=== PATIENT | male | born 1940 | race Caucasian/White ===

== ENCOUNTER 2023-04-15 15:04 | Outpatient (RCR) | payer MEDICARE, SELFPAY | END 2023-04-15 23:59 | disposition home or self-care (01) | LOC: RPT 15:04 | PROVIDERS: ATTENDING PHYSICIAN Physical Medicine & Rehabilitation; PRIMARYCARE PHYSICIAN Family Medicine | DX: Z47.81 Encounter for orthopedic aftercare following surgical amputation (principal); M62.81 Muscle weakness (generalized); Z73.6 Limitation of activities due to disability; Z89.612 Acquired absence of left leg above knee; R26.2 Difficulty in walking, not elsewhere classified | CPT/HCPCS: 97110; 97763 ==

== ENCOUNTER 2023-05-27 14:06 | Outpatient (RCR) | payer MEDICARE, SELFPAY | END 2023-05-27 23:59 | disposition home or self-care (01) | LOC: RPT 14:06 | PROVIDERS: ATTENDING PHYSICIAN Physical Medicine & Rehabilitation; PRIMARYCARE PHYSICIAN Family Medicine | DX: Z47.81 Encounter for orthopedic aftercare following surgical amputation (principal); M62.81 Muscle weakness (generalized); Z73.6 Limitation of activities due to disability; Z89.612 Acquired absence of left leg above knee; R26.2 Difficulty in walking, not elsewhere classified | CPT/HCPCS: 97110; 97763 ==

== ENCOUNTER 2023-06-24 13:56 | Outpatient (RCR) | payer MEDICARE, SELFPAY | END 2023-06-24 23:59 | disposition home or self-care (01) | LOC: RPT 13:56 | PROVIDERS: ATTENDING PHYSICIAN Physical Medicine & Rehabilitation; PRIMARYCARE PHYSICIAN Family Medicine | DX: Z47.81 Encounter for orthopedic aftercare following surgical amputation (principal); M62.81 Muscle weakness (generalized); Z73.6 Limitation of activities due to disability; Z89.612 Acquired absence of left leg above knee; R26.2 Difficulty in walking, not elsewhere classified | CPT/HCPCS: 97763 ==

== ENCOUNTER 2023-07-22 14:22 | Outpatient (RCR) | payer MEDICARE, SELFPAY | END 2023-07-22 23:59 | disposition home or self-care (01) | LOC: RPT 14:22 | PROVIDERS: ATTENDING PHYSICIAN Physical Medicine & Rehabilitation; PRIMARYCARE PHYSICIAN Family Medicine | DX: Z47.81 Encounter for orthopedic aftercare following surgical amputation (principal); M62.81 Muscle weakness (generalized); Z73.6 Limitation of activities due to disability; R26.2 Difficulty in walking, not elsewhere classified; Z89.612 Acquired absence of left leg above knee | CPT/HCPCS: 97763 ==

== ENCOUNTER 2023-08-05 14:06 | Outpatient (RCR) | payer MEDICARE, SELFPAY | END 2023-08-05 23:59 | disposition home or self-care (01) | LOC: RPT 14:06 | PROVIDERS: ATTENDING PHYSICIAN Physical Medicine & Rehabilitation; PRIMARYCARE PHYSICIAN Family Medicine | DX: Z47.81 Encounter for orthopedic aftercare following surgical amputation (principal); Z73.6 Limitation of activities due to disability; R26.2 Difficulty in walking, not elsewhere classified; M62.81 Muscle weakness (generalized); Z89.612 Acquired absence of left leg above knee | CPT/HCPCS: 97763 ==

== ENCOUNTER 2023-08-10 10:21 | Emergency (ER) | payer MEDICARE, SELFPAY ==
[2023-08-10] VITALS (7 sets, daily range): BP systolic 143–168; BP diastolic 61–96; BMI 24.4
--- NOTE | 2023-08-10 11:54 | ED.MUSCINJ ---
HPI-Injury
General
Chief Complaint: Fall
Source: patient
Exam Limitations: none
Time Seen by Provider: 08/10/23 11:48
Travel History
Have you had any contact with someone who has COVID-19?: No
Do you have any symptoms of coronavirus? Fever > 100 degrees, chills, cough, shortness of breath, sore throat, loss of taste or smell, muscle aches, or headache?: No
History of Present Illness-Injury
Initial Injury comments:
82-year-old male on Coumadin presents after a fall he sustained yesterday. He complains of left rib and upper abdominal pain. He did not hit his head. He notes increased pain with deep breathing. He denies any new shortness of breath. He notes
an area of bruising to the upper abdomen. Prior history of pionn-kjr-pqqs amputation on the left side. No other complaints at this time
Past History
Past History
ED Past Medical History: Arrthythmia (Atrial fib), CAD, Cancer (bladder CA), COPD, HTN, Hypercholesterolemia, IDDM and Other (Chronic kidney issues, Cellulitis, GI bleeding, PE,)
ED Past Surgical History: Appendectomy, Cardiac (CABG), Orthopedic (LAK,) and Urological
Social History
Tobacco: Smoker
Alcohol: None
Drug: None
Personal:
Living: alone
Employment: Retired
Family History
Family History: Other (Noncontributory)
Phy Exam
Physical Exam
Physical Exam:
General: Well-appearing male no acute respiratory distress but does appear to be uncomfortable
HEENT: Normocephalic atraumatic
Heart: Regular rate and rhythm
Lungs: Wheeze bilaterally, patient is a chronic smoker. Breath sounds heard throughout
Abdomen is soft tender to the upper quadrant there is some ecchymosis noted to the epigastric area musculoskeletal exam: Patient is tender over the anterior lateral ribs on the left side inferiorly
Without step-off or deformity
Extremities: No cyanosis
Injury Course
Orders/Labs/Results
Orders:
Orders
08/10/23 11:53
CT Chest/abd/pel W Iv Cont Urgent
Comment:
Reason For Exam: fall, left rib and upper abdominal pain, coumadin
08/10/23 11:54
HYDROmorphone [Dilaudid] 0.5 mg IV NOW STA
08/10/23 12:04
Complete Blood Count/With Diff Urgent
Comprehensive Metabolic Panel Urgent
PT/INR [Prothrombin Time] Urgent
08/10/23 14:55
Oxycodone/Acetaminophen [Percocet 5/325] 1 tablet PO NOW STA
Abnormal Lab Results
08/10/23
12:04
RBC 4.08 L 10^6/uL
(4.70-6.10)
Hgb 11.6 L g/dL
(13.0-18.0)
Hct 36.2 L %
(39.0-52.0)
MCHC 32.0 L g/dL
(33.0-37.0)
RDW 16.4 H %
(11.5-14.5)
Plt Count 119 L 10^3/uL
(130-400)
MPV 11.6 H fL
(7.4-10.4)
Absolute Neuts (auto) 7.8 H 10^3/uL
(1.4-6.5)
Absolute Lymphs (auto) 0.6 L 10^3/uL
(1.2-3.4)
Absolute Monos (auto) 0.7 H 10^3/uL
(0.1-0.6)
Neutrophils % 84.2 H %
(42.2-75.2)
Lymphocytes % 6.4 L %
(20.5-51.1)
PT 18.9 H Sec
(11.4-14.6)
Sodium 133 L mmol/L
(135-145)
BUN 36 H mg/dl
(9-20)
Glucose 220 H mg/dl
(70-99)
AST 16 L U/L
(17-59)
Total Protein 6.0 L g/dl
(6.3-8.2)
08/10/23 12:04
08/10/23 12:04
MDM/Problems Addressed
Differential Diagnosis Includes:
Mechanical fall with left rib and upper abdominal pain on Coumadin. Concern for internal bleeding will evaluate for rib fracture/pneumothorax. CT chest abdomen pelvis with IV contrast pending.
*Critical Care Note
Total Time (30-74mins, 75-104mins- exclusive of procedures): Not Applicable
Update Note
Update Note:
INR 1.6. Workup otherwise demonstrates seventh eighth and ninth rib fractures without associated pneumothorax. Patient did receive some relief with additional pain medicine however the pain returned. Had discussion with patient regarding his
condition. Suggested that with an acwub-aau-vxto amputation on the left and a walker dependent person ambulating may be difficult with a walker with 3 rib fractures. He understood this. I recommended he stay in the hospital however he declined
and states he has been in the hospital too many times and he wants to go home. That being said, prescription for pain medicine was sent to his pharmacy cautions were given
ED Attending Note
-
Portions of this chart may have been created with voice recognition software.� Occasional wrong word or��sound alike� substitutions may have occurred due to the inherent limitations of voice recognition software.
Discharge Plan
Departure
Patient Disposition: Home (Routine Discharge)
Date of Disposition: 08/10/23
Time of Disposition: 14:57
Patient with high blood pressure during this ER visit?: No
Discharge Problem:
Fracture, ribs
Instructions: Rib fractures in adults
Prescriptions:
New
oxycodone-acetaminophen [Percocet] 5-325 mg tablet
1 tab PO Q8H PRN (Reason: Pain) Qty: 10 0RF
No Action
atorvastatin 40 MG tablet
40 mg PO QPM
docusate sodium 100 MG capsule
100 mg PO BID
furosemide 40 MG tablet
40 mg PO DAILY
finasteride 5 MG tablet
5 mg PO QPM
bupropion HCl 300 MG tablet extended release 24 hr
300 mg PO QPM
albuterol sulfate 1 PUFF HFA aerosol inhaler
2 puff inhalation R Q6HPRN PRN (Reason: sob)
insulin lispro [Humalog KwikPen Insulin] 100 UNIT/ML insulin pen
5 units SC MEALS
Patient Comments:
aspirin 81 MG tablet,delayed release (DR/EC)
81 mg PO DAILY
acetaminophen 325 MG tablet
650 mg PO Q4HPRN PRN (Reason: mild pain)
metoprolol succinate 25 MG tablet extended release 24 hr
25 mg PO DAILY
folic acid 1 MG tablet
1 mg PO DAILY Qty: 30 0RF
melatonin 5 MG tablet
5 mg PO HSPRN PRN (Reason: sleep)
fluticasone furoate-vilanterol [Breo Ellipta] 1 EACH blister with device
1 puff inhalation R DAILY
insulin glargine [Lantus Solostar U-100 Insulin] 300 UNITS/3 ML insulin pen
8 units SC HS
Patient Comments:
Pt took 4 units last evening
pantoprazole 40 MG tablet,delayed release (DR/EC)
40 mg PO BID
warfarin [Jantoven] 3 MG tablet
3 mg PO QPM
methenamine hippurate 1 gram Tablet
1 g PO DAILY
Referrals:
Mirna Hylton DO [Family Provider] -
Interventions
Interventions:
*Risk Screen - Suicide Last Done: 08/10/23 12:18
*General Assessment Last Done: 08/10/23 11:48
*Neglect/Abuse Screening Last Done: 08/10/23 12:18
ED- Fall Risk Assessment Last Done: 08/10/23 12:17
*ED COVID-19 Vaccine History Last Done: 08/10/23 10:30
ED-Musculoskeletal Assessment Last Done: 08/10/23 12:17
ED- Neurological Assessment Last Done: 08/10/23 12:17
ED-Skin Assessment Last Done: 08/10/23 12:17
Discharge Date and Time
Print Language: LAO
[2023-08-10] MEDS: DILAUDID 0.5 MG IV (12:04)
[2023-08-10 12:18] LABS: % Basophils 0.2 % (0-2); % Eosinophils 0.8 % (0-6); % Immature Granulocytes 0.4 % (0-0.5); % Lymphocytes 6.4 % (20.5-51.1); % Neutrophils 84.2 % (42.2-75.2); Absolute Eosinophils 0.1 10^3/uL (0-0.7); Absolute Lymphocytes 0.6 10^3/uL (1.2-3.4); Absolute Monocytes 0.7 10^3/uL (0.1-0.6); Absolute Neutrophils 7.8 10^3/uL (1.4-6.5); Hematocrit 36.2 % (39.0-52.0); Hemoglobin 11.6 g/dL (13.0-18.0); Mean Corpuscular Hgb 28.4 pg (27.0-31.0); Mean Corpuscular Volume 88.7 fL (80.0-94.0); Mean Platelet Volume 11.6 fL (7.4-10.4); Nucleated Red Blood Cells % 0 % (-); Platelet Count 119 10^3/uL (130-400); Red Blood Cell Count 4.08 10^6/uL (4.70-6.10); Red Cell Dist. Width 16.4 % (11.5-14.5); White Blood Cell Count 9.3 10^3/uL (4.8-10.8)
[2023-08-10 12:32] LABS: ALT (SGPT) 13 U/L (0-50); AST (SGOT) 16 U/L (17-59); Albumin 3.5 g/dl (3.5-5.0); Alkaline Phosphatase 90 U/L (38-126); Blood Urea Nitrogen 36 mg/dl (9-20); Calcium 8.9 mg/dl (8.4-10.2); Carbon Dioxide 29 mmol/L (22-30); Chloride 98 mmol/L (98-107); Estimated Creatinine Clearance 47 ml/min; Glucose 220 mg/dl (70-99); Sodium 133 mmol/L (135-145); Total Bilirubin 0.4 mg/dl (0.2-1.3); eGFR 55.53
[2023-08-10 12:38] LABS: INR 1.61; PT 18.9 Sec (11.4-14.6); Potassium 4.6 mmol/L (3.5-5.1)
[2023-08-10] MEDS: PERCOCET 5/325 1 TABLET PO (15:04)
== END 2023-08-10 15:46 | disposition home or self-care (01) ==
LOC: EMR 10:21
PROVIDERS: Physician Assistant; EMERGENCY PHYSICIAN Emergency Medicine; FAMILY PHYSICIAN Family Medicine
DX: S22.42XA Multiple fractures of ribs, left side, initial encounter for closed fracture (principal); W19.XXXA Unspecified fall, initial encounter; F17.200 Nicotine dependence, unspecified, uncomplicated; Z79.01 Long term (current) use of anticoagulants; Z89.612 Acquired absence of left leg above knee
CPT/HCPCS: 99285; 96374; 71260; 74177; 80053; 85025; 85610; Q9967

== ENCOUNTER 2023-08-12 16:40 | Observation (INO) | payer MEDICARE, SELFPAY ==
[2023-08-12 12:47] VITALS: BP 191/97
[2023-08-12 13:26] VITALS: BP 232/87
[2023-08-12 14:00] VITALS: BP 155/90
--- NOTE | 2023-08-12 14:18 | ED.GENMED ---
History of Present Illness
General
Chief Complaint: Breathing Problem
Time Seen by Provider: 08/12/23 13:35
Travel History
Have you had any contact with someone who has COVID-19?: No
Do you have any symptoms of coronavirus? Fever > 100 degrees, chills, cough, shortness of breath, sore throat, loss of taste or smell, muscle aches, or headache?: No
History of Present Illness
History of Present Illness:
82-year-old male returns the emergency department due to severe intractable pain from left-sided rib fractures. He had a fall 3 days ago and was seen in this emergency department the following day, chest abdomen pelvis CT scan revealed left-sided
multiple rib fractures with no evidence for hemopneumothorax. Patient was offered admission at that time but declined, was sent home with opiate pain medication which she states is not helping. Has not been able to get himself up and out of bed
and is requiring multiple assistance to ambulate thus he return to the ER. Denies any new falls or injury. No hemoptysis
Past History
Past History
ED Past Medical History: Arrthythmia (Atrial fib), CAD, Cancer (bladder CA), COPD, HTN, Hypercholesterolemia, IDDM and Other (Chronic kidney issues, Cellulitis, GI bleeding, PE,)
ED Past Surgical History: Appendectomy, Cardiac (CABG), Orthopedic (LAK,) and Urological
Social History
Tobacco: Smoker
Alcohol: None
Drug: None
Personal:
Living: alone
Employment: Retired
Family History
Family History: Other (Noncontributory)
Review of Systems
Review of Systems
Allergies reviewed?: Yes
All Other Systems: ROS reviewed and negative except as documented in HPI and ROS
Phy Exam
Physical Exam
Physical Exam:
GEN: Well appearing, NAD, WDWN
HEENT: Oral mucosa moist, no scleral icterus
Cardiac: Regular rate
Lung: No respiratory distress, no tachypnea
MSK: No gross deformity or injuries
Skin: Good color, no pallor or jaundice, no rashes
Neuro: AO x3, moves all extremities freely
Psych: Calm, cooperative
Scores
Heart Failure Risk
Heart Failure Risk Score: Not Applicable
Course
Orders/Labs/Results
Orders:
Orders
08/12/23 14:14
HYDROmorphone [Dilaudid] 0.5 mg IV NOW STA
CR Chest - 2 Views Urgent
Comment:
Reason For Exam: chest discomfort/dyspnea, known rib fx
Incentive Spirometry [Rx Incentive Spirometry] [RESP] Urgent
Frequency: q1h while awake
08/12/23 14:46
Complete Blood Count/With Diff Urgent
Comprehensive Metabolic Panel Urgent
Prothrombin Time Urgent
08/12/23 Dinner
2000 calorie (17 carb) Diabetic
At Your Request: Full Participation
Does patient need a safe tray?: No
08/12/23 16:07
Admit/Transfer Patient As Directed
Co-Sign Provider:
Level of Care: Observation services
Assign to:: Medical/Surgical
Physician / Group: Nishant
Diagnosis: Rib Fractures
08/12/23 16:26
Sodium Zirconium Cyclosilicate [Lokelma] 10 gram PO NOW STA
08/12/23 16:30
MethylPREDNISolone PF [Solu-Medrol Pf] 40 mg IV NOW STA
08/12/23 16:38
Code Status As Directed
Resuscitation Status: Do not resuscitate
Reached after discussion with pt or family/Healthcare POA: Yes
DNR Bracelet Application ONCE
08/12/23 17:00
0.9% Sodium Chloride 500 ml [Nss] 500 ml IV 60 mls/hr
08/12/23 19:29
Atorvastatin [Lipitor] 40 mg PO QPM
Bupropion(24Hr)Extended Releas [WELLBUTRIN XL (24 hour extended release)] 300 mg PO QPM
Dextrose 50%-Water [Dextrose 50% Syringe] 12.5 grams IV [id number] PRN
Finasteride [Proscar] 5 mg PO QPM
Glucagon [GlucaGen] 1 mg IM PRN PRN
HYDROmorphone [Dilaudid] 0.25 mg IV Q3HPRN PRN
Insulin Aspart Corrective Low [Novolog Flexpen-Low Resistance] See Protocol SC AC
Ipratropium/Albuterol Sulfate [Duoneb] 3 ml INH R Q4HPRN PRN
Magnesium Citrate [Citroma] 300 ml PO ONCE ONE
08/12/23 19:29
Activity As Directed
Activity Level: Out of Bed-Early Mobility
Bedside Glucose Monitoring As Directed
Frequency: AC&HS
Additional Instructions:: Change to q6h if pt on TPN, tube feeding or not eating
I&O [Intake/ Output] As Directed
Frequency: q12h
Pneumatic Compression Sleeves As Directed
Type: Knee high
Vital Signs As Directed
Frequency: Per unit guidelines
Weight As Directed
Frequency: Daily
Oxygen Therapy [O2 Therapy] [RESP] Routine
Titrate/Wean O2 to maintain O2 sat greater than (%): 90
Rx Incentive Spirometry [RESP] Routine
Frequency: q1h while awake
Ot Eval And Treat Routine
Pt Eval And Treat Routine
Activity Level: Out of Bed-Early Mobility
DX Deep Vein Thrombosis Video Routine
08/12/23 20:00
Docusate W/Senna [Senokot-S] 2 tablet PO BID
Ipratropium/Albuterol Sulfate [Duoneb] 3 ml INH R QID
Pantoprazole [Protonix] 40 mg PO BID
08/12/23 22:00
Acetaminophen [Tylenol] 1,000 mg PO TID
insulin glargine [Lantus Solostar U-100 Insulin] 8 units SC HS
08/13/23 06:00
Basic Metabolic Panel IN AM
Complete Blood Count/No Diff IN AM
Glycohemoglobin (HgbA1c) IN AM
Prothrombin Time IN AM
08/13/23 08:00
Aspirin Low Dose EC [Aspir Low (Enteric Coated)] 81 mg PO DAILY
Duloxetine Delayed Release [Cymbalta Delayed Release] 60 mg PO DAILY
Furosemide [Lasix] 40 mg PO DAILY
Insulin Aspart Pen [Novolog Flexpen] 5 units SC MEALS
Lidocaine [Lidocaine 4% Patch] 1 patch TOPICAL DAILY
Methenamine Hippurate [Hiprex] 1 gram PO DAILY
MethylPREDNISolone PF [Solu-Medrol Pf] 40 mg IV DAILY
Metoprolol Xl [Toprol Xl] 25 mg PO DAILY
08/13/23 18:00
Warfarin [Coumadin] 2 mg PO QPM
08/14/23 06:00
Prothrombin Time IN AM
08/15/23 06:00
Prothrombin Time IN AM
08/16/23 06:00
Prothrombin Time IN AM
08/17/23 06:00
Prothrombin Time IN AM
Abnormal Lab Results
08/12/23
14:46
RBC 4.11 L 10^6/uL
(4.70-6.10)
Hgb 11.5 L g/dL
(13.0-18.0)
Hct 37.3 L %
(39.0-52.0)
MCHC 30.8 L g/dL
(33.0-37.0)
RDW 16.7 H %
(11.5-14.5)
Plt Count 118 L 10^3/uL
(130-400)
MPV 11.2 H fL
(7.4-10.4)
Absolute Neuts (auto) 9.3 H 10^3/uL
(1.4-6.5)
Absolute Lymphs (auto) 0.4 L 10^3/uL
(1.2-3.4)
Neutrophils % 89.7 H %
(42.2-75.2)
Lymphocytes % 3.7 L %
(20.5-51.1)
PT 36.6 H Sec
(11.4-14.6)
Sodium 130 L mmol/L
(135-145)
Potassium 5.2 H mmol/L
(3.5-5.1)
Chloride 97 L mmol/L
(98-107)
Carbon Dioxide 32 H mmol/L
(22-30)
BUN 29 H mg/dl
(9-20)
Glucose 213 H mg/dl
(70-99)
Total Protein 6.0 L g/dl
(6.3-8.2)
08/12/23 14:46
08/12/23 14:46
Vital Signs
Initial and Last Documented VS:
Initial Vital Signs
Temp Pulse Resp BP Pulse Ox
97.7 F 67 18 191/97 98
08/12/23 12:47 08/12/23 12:47 08/12/23 12:47 08/12/23 12:47 08/12/23 12:47
Last Documented Vital Signs
Temp Pulse Resp BP Pulse Ox
98.1 F 81 18 124/84 93
08/12/23 19:38 08/12/23 20:20 08/12/23 20:20 08/12/23 19:38 08/12/23 20:20
MDM/Problems Addressed
MDM/Problems Addressed:
Will admit to hospitalist for pain control/rehab considerations
*Critical Care Note
Total Time (30-74mins, 75-104mins- exclusive of procedures): Not Applicable
ED Attending Note
-
Portions of this chart may have been created with voice recognition software.� Occasional wrong word or��sound alike� substitutions may have occurred due to the inherent limitations of voice recognition software.
Discharge Plan
Departure
Patient Disposition: Admit
Date of Disposition: 08/12/23
Time of Disposition: 15:27
Admit to: Med/Surg
Presentation/result/management discussed w/ accepting MD/DO: Hospitalist
Discharge Problem:
Multiple fractures of ribs
Interventions
Interventions:
*Risk Screen - Suicide Last Done: 08/12/23 14:22
*General Assessment Last Done: 08/12/23 14:22
*Neglect/Abuse Screening Last Done: 08/12/23 14:22
ED- Fall Risk Assessment Last Done: 08/12/23 14:22
*ED COVID-19 Vaccine History Last Done: 08/12/23 12:47
*Nursing Disposition Last Done: 08/12/23 19:06
ED- Cardiac Assessment Last Done: 08/12/23 14:22
ED- Pulmonary Assessment Last Done: 08/12/23 14:22
Discharge Date and Time
Discharge Date/Time: 08/12/23 19:24
[2023-08-12] MEDS: DILAUDID 0.5 MG IV (14:38)
[2023-08-12 14:55] LABS: % Basophils 0.2 % (0-2); % Eosinophils 0.1 % (0-6); % Immature Granulocytes 0.4 % (0-0.5); % Lymphocytes 3.7 % (20.5-51.1); % Monocytes 5.9 % (1.7-9.3); % Neutrophils 89.7 % (42.2-75.2); Absolute Lymphocytes 0.4 10^3/uL (1.2-3.4); Absolute Monocytes 0.6 10^3/uL (0.1-0.6); Absolute Neutrophils 9.3 10^3/uL (1.4-6.5); Hematocrit 37.3 % (39.0-52.0); Hemoglobin 11.5 g/dL (13.0-18.0); Mean Corp Hgb Conc. 30.8 g/dL (33.0-37.0); Mean Corpuscular Volume 90.8 fL (80.0-94.0); Mean Platelet Volume 11.2 fL (7.4-10.4); Nucleated Red Blood Cells % 0 % (-); Platelet Count 118 10^3/uL (130-400); Red Blood Cell Count 4.11 10^6/uL (4.70-6.10); Red Cell Dist. Width 16.7 % (11.5-14.5); White Blood Cell Count 10.3 10^3/uL (4.8-10.8)
[2023-08-12 15:08] LABS: ALT (SGPT) 13 U/L (0-50); AST (SGOT) 18 U/L (17-59); Albumin 3.5 g/dl (3.5-5.0); Alkaline Phosphatase 100 U/L (38-126); Blood Urea Nitrogen 29 mg/dl (9-20); Calcium 8.6 mg/dl (8.4-10.2); Carbon Dioxide 32 mmol/L (22-30); Chloride 97 mmol/L (98-107); Glucose 213 mg/dl (70-99); Potassium 5.2 mmol/L (3.5-5.1); Sodium 130 mmol/L (135-145); Total Bilirubin 0.4 mg/dl (0.2-1.3); eGFR > 60.00
[2023-08-12 15:17] LABS: INR 3.61; PT 36.6 Sec (11.4-14.6)
--- NOTE | 2023-08-12 16:21 | HPS.HSE ---
Addendum entered and electronically signed by Amelia Dillard MD 08/12/23 17:05:
I saw and examined the patient.
The PULMONARY SPECIALIST or PA's note was reviewed and I agree with the note.
Comment:
82 years old male presented to the emergency room with uncontrolled left chest wall pain after he sustained a fall and had 3 broken ribs, 7, 8, 9 ribs. No shortness of breath on examination he was noted to be have wheezes. He is a chronic smoker
and smokes 1 pack a day. He was also found to have mild hyperkalemia and he reported he was not eating or drinking well because of the pain. He was trying Percocet but could not control his pain.
Physical Exam
General: Comfortable and Conversant
HEENT: Anicteric and Other (Mucous membranes are slightly dry). Hard hearing
Respiratory: Wheezes and Non Labored Respirations
Cardiac: S1/S2 and Regular Rhythm
GI: Soft, Tender (Mild throughout without rebound or guarding) and Other (Abdomen feels full on exam)
Rectal: Deferred by Provider
Musculoskeletal: No Clubbing, No Cyanosis and Other (Left AKA)
Skin: Warm and Dry
Neuro: Awake, Alert, Oriented and Nonfocal/grossly intact
Psych: Calm
#Multiple Left Rib Fractures
-Encourage use incentive spirometer
-Add Tylenol 1000mg TID
-Add Lidocaine Patch
-Continue Dilaudid prn breakthrough pain until we know how much pain medicine/opioid he will need
-Order PT/OT
#Mild Acute COPD Exacerbation
Bilateral wheezes on exam, not severe. Patient denies shortness of breath
Unfortunately he continues to smoke tobacco
-Continue Solu-Medrol
-Continue DuoNeb
# Hyponatremia, mild, seems a chronic. No confusion
# Hyperkalemia, will give Lokelma 1 dose. Possible related to dehydration
#Constipation
-Give dose of magnesium citrate
-Add Senokot-S
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
-Continue aspirin
Will verify with his embroiderer if he needs to be on Coumadin and aspirin at the same time.
# Hypercoagulopathy secondary to Coumadin
Hold Coumadin tonight and recheck INR in a.m.
#Chronic HFpEF
Paroxysmal Atrial Fibrillation
-Continue Coumadin - Monitor INR Daily
-Continue metoprolol
#Dyslipidemia
-Continue Atorvastatin
#Diabetes Mellitus, Type II
-Continue Lantus and NovoLog
-Monitor sugars and continue coverage insulin
#BPH
-Continue Finasteride
#Recurrent UTIs
-Continue Hiprex
#GERD
-Continue Protonix
#Depression
Mood is a pleasant-
-Continue Bupropion and Duloxetine
Hx Bladder Cancer s/p TURBT
DVT proph:Coumadin. Monitor INR
Code Status: DNR. Confirmed with patient
Total time spent to see patient, examine the patient on the floor, review data and lab results, discuss treatment plan with patient, ER doctor, family, nursing staff around 75 minutes
�
Original Note:
Family Physician
-
Family Physician: Mirna Hylton
Chief Complaint
-
Rib Pain
History of Present Illness
Patient is an 82 y/o male with a past medical history of diabetes mellitus, peripheral vascular disease, hyperlipidemia, hypertension, coronary artery disease, benign prostatic hyperplasia, heart failure, depression, paroxysmal atrial fibrillation,
chronic obstructive pulmonary disease, and ischemic foot with an poqsf-kdu-jowq amputation who presents for left rib pain since Thursday. He states that he fell on Thursday and was evaluated in the emergency department on Thursday. He was diagnosed with
left seventh, eighth, and ninth rib fractures and sent home with Percocet, after declining admission at that time. He admits to worsening pain over the past few days, which prompted his emergency department visit today. He admits to some abdominal
discomfort with constipation since starting the Percocet at home. He denies new shortness of breath or other sources of pain.
Medical History
Past Medical History
Past Medical History: Reports Other
Additional Past Medical History:
ASCVS (CAD and PAD)
Chronic HFpEF
Paroxysmal Atrial Fibrillation
Essential Hypertension
Dyslipidemia
Diabetes Mellitus, Type II
COPD
Achalasia
DVT
Bladder Cancer
BPH
Recurrent UTIs
GERD
Depression
Past Surgical History: Reports Other
Additional Past Surgical History:
Right Fem-Pop Bypass
Right Hallux Amputation
Left Above Knee Amputation
Coronary Artery Bypass Graft
Transurethral Resection of Bladder Tumor
Nisan Fundoplication
Social History
Tobacco: Smoker (1 ppd)
Alcohol: None
Living: With Family
Family History
Family History: Not pertinent
Allergies / Home Medications
Allergies reflects when Allergies were last updated in [employer].
Home Medications with original date entered in [employer]
Allergy/Medication List:
Allergies
Allergy/AdvReac Type Severity Reaction Status Date / Time
No Known Allergies Allergy Verified 08/12/23 12:48
Home Medications
atorvastatin 40 mg tablet 40 mg PO QPM High cholesterol 12/27/13
docusate sodium 100 mg capsule 100 mg PO DAILY 02/07/20
finasteride 5 mg tablet 5 mg PO QPM Urinary issue 02/14/20
furosemide 40 mg tablet 40 mg PO DAILY Fluid retention/Swelling 02/14/20
bupropion HCl 300 mg 24 hr tablet, extended release 300 mg PO QPM Mental Health/Anxiety 04/06/20
albuterol sulfate 90 mcg/actuation aerosol inhaler 2 puff inhalation R Q6HPRN PRN sob 06/21/20
insulin lispro 100 unit/mL subcutaneous pen (Humalog KwikPen (U-100) Insulin) 5 units SC MEALS Diabetes 06/21/20
aspirin 81 mg tablet,delayed release 81 mg PO DAILY Blood clot prevention/tx 06/22/20
acetaminophen 325 mg tablet 650 mg PO Q4HPRN PRN mild pain 11/30/20
metoprolol succinate 25 mg tablet,extended release 24 hr 25 mg PO DAILY Blood pressure 11/30/20
melatonin 5 mg tablet 5 mg PO HSPRN PRN sleep 05/31/21
insulin glargine 100 unit/mL (3 mL) subcutaneous pen (Lantus Solostar U-100 Insulin) 8 units SC HS Diabetes 08/03/21
pantoprazole 40 mg tablet,delayed release 40 mg PO BID Gastrointestinal issue 09/11/21
warfarin 3 mg tablet (Jantoven) 3 mg PO QPM Blood clot prevention/tx 09/13/21
methenamine hippurate 1 gram tablet 1 g PO DAILY 06/27/22
duloxetine 60 mg capsule,delayed release (Cymbalta) 60 mg PO DAILY 08/12/23
oxycodone-acetaminophen 5 mg-325 mg tablet (Percocet) 1 tab PO Q8H Pain 08/12/23
Review of Systems
-
A 12 point ROS was completed and negative except as noted: Yes
Constitutional: Denies Fever or Chills
Respiratory: Reports Trouble Breathing; Denies Cough
Cardiac: Denies Chest Pain or Palpitations
Musculoskeletal: Reports See HPI
Physical Exam
Vital Signs
Vital Signs
Temp Pulse Resp BP Pulse Ox
97.7 F 61 15 155/90 98
08/12/23 12:47 08/12/23 15:00 08/12/23 15:00 08/12/23 14:00 08/12/23 15:00
Physical Exam
General: Comfortable and Conversant
HEENT: Anicteric and Other (Mucous membranes are slightly dry)
Respiratory: Wheezes and Non Labored Respirations
Cardiac: S1/S2 and Regular Rhythm
GI: Soft, Tender (Mild throughout without rebound or guarding) and Other (Abdomen feels full on exam)
Rectal: Deferred by Provider
Musculoskeletal: No Clubbing, No Cyanosis and Other (Left AKA)
Skin: Warm and Dry
Neuro: Awake, Alert, Oriented and Nonfocal/grossly intact
Psych: Calm
Laboratory Results
-
08/12/23 14:46
08/12/23 14:46
Laboratory Results
PT 36.6 Sec (11.4-14.6) H 08/12/23 14:46
INR 3.61 D 08/12/23 14:46
Total Bilirubin 0.4 mg/dl (0.2-1.3) 08/12/23 14:46
AST 18 U/L (17-59) 08/12/23 14:46
ALT 13 U/L (0-50) 08/12/23 14:46
Alkaline Phosphatase 100 U/L (38-126) 08/12/23 14:46
Data Reviewed
-
Lab Data: Labs Reviewed by me
Old Records: Reviewed
Impression/Plan
-
Multiple Left Rib Fractures
-Encourage use incentive spirometer
-Add Tylenol 1000mg TID
-Add Lidocaine Patch
-Continue Dilaudid prn breakthrough pain
Mild Acute COPD Exacerbation
-Continue Solu-Medrol
-Continue DuoNeb
Constipation
-Give dose of magnesium citrate
-Add Senokot-S
ASCVS (CAD and PAD) s/p CABG and Left AKA
-Continue aspirin
Chronic HFpEF
Paroxysmal Atrial Fibrillation
-Continue Coumadin - Monitor INR Daily
-Continue metoprolol
Dyslipidemia
-Continue Atorvastatin
Diabetes Mellitus, Type II
-Continue Lantus and NovoLog
-Monitor sugars and continue coverage insulin
BPH
-Continue Finasteride
Recurrent UTIs
-Continue Hiprex
GERD
-Continue Protonix
Depression
-Continue Bupropion and Duloxetine
Hx Bladder Cancer s/p TURBT
DVT proph:Coumadin
Code Status: DNR
[2023-08-12 16:40] VITALS: BMI 24.7
[2023-08-12] MEDS: NSS 500 IV (16:59)
[2023-08-12] MEDS: SOLU-MEDROL PF 40 MG IV (17:05)
[2023-08-12] MEDS: LOKELMA 10 GRAM PO (17:05)
[2023-08-12 19:38] VITALS: BP 124/84; BMI 21.0
--- NOTE | 2023-08-12 19:38 | PTCARENOTE ---
Addendum entered by Sukhjinder Whatley RN 08/13/23 05:26:
0.25 mg IV Dilaudid given @194
Original Note:
Pt arrived onto floor @1938. Pt is AAOx3 and complaining of pain in the ribs. Pt is requesting IV pain medication. 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 Pt oriented to room and call diggs, will continue to monitor.
--- NOTE | 2023-08-12 19:38 | PTCARENOTE ---
Pt arrived onto floor @1938. Pt is AAOx3 and complaining of pain in the ribs. 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 Pt oriented to room and call diggs, will continue to monitor.
[2023-08-12] MEDS: DILAUDID 0.25 MG IV ×2 (19:42→23:38)
[2023-08-12 20:13] VITALS: BMI 21.0
[2023-08-12] MEDS: LIPITOR 40 MG PO (20:15)
[2023-08-12] MEDS: WELLBUTRIN XL (24 hour extended release) 300 MG PO (20:15)
[2023-08-12] MEDS: PROSCAR 5 MG PO (20:15)
[2023-08-12] MEDS: PROTONIX 40 MG PO (20:15)
[2023-08-12] MEDS: SENOKOT-S 2 TABLET PO (20:15)
[2023-08-12] MEDS: DUONEB 3 ML INH (20:17)
[2023-08-12] MEDS: TYLENOL 1000 MG PO (21:01)
[2023-08-12 21:21] LABS: Glucose - Point of Care 274 mg/dl (70-99)
[2023-08-12] MEDS: LANTUS 0.0800000000000000017 UNITS SC (22:20)
[2023-08-12] MEDS: NOVOLOG FLEXPEN-LOW RESISTANCE 3 UNITS SC (22:29)
[2023-08-12 23:29] VITALS: BP 154/79
[2023-08-13 05:40] VITALS: BMI 21.0
[2023-08-13] MEDS: DILAUDID 0.25 MG IV ×3 (05:41→21:25)
[2023-08-13 07:00] VITALS: BP 177/83
[2023-08-13 07:24] LABS: Glucose - Point of Care 246 mg/dl (70-99)
[2023-08-13] MEDS: DUONEB 3 ML INH ×4 (07:32→19:46)
[2023-08-13 08:32] LABS: Hematocrit 36.7 % (39.0-52.0); Hemoglobin 11.8 g/dL (13.0-18.0); Mean Corp Hgb Conc. 32.2 g/dL (33.0-37.0); Mean Corpuscular Hgb 28.5 pg (27.0-31.0); Mean Corpuscular Volume 88.6 fL (80.0-94.0); Mean Platelet Volume 12.1 fL (7.4-10.4); Platelet Count 149 10^3/uL (130-400); Red Blood Cell Count 4.14 10^6/uL (4.70-6.10); Red Cell Dist. Width 16.7 % (11.5-14.5); White Blood Cell Count 9.8 10^3/uL (4.8-10.8)
[2023-08-13 08:39] LABS: INR 3.17
[2023-08-13] MEDS: LANTUS 0.149999999999999994 UNITS SC (09:26)
[2023-08-13] MEDS: NOVOLOG FLEXPEN 5 UNITS SC ×3 (09:26→17:48)
[2023-08-13] MEDS: NOVOLOG FLEXPEN-HIGH RESISTANCE 4 UNITS SC ×3 (09:27→17:49)
[2023-08-13] MEDS: SOLU-MEDROL PF 40 MG IV (09:28)
[2023-08-13] MEDS: LASIX 40 MG PO (09:28)
[2023-08-13] MEDS: PROTONIX 40 MG PO ×2 (09:29→19:36)
[2023-08-13] MEDS: TYLENOL 1000 MG PO ×2 (09:29→17:46)
[2023-08-13] MEDS: SENOKOT-S 2 TABLET PO ×2 (09:29→19:36)
[2023-08-13] MEDS: CYMBALTA DELAYED RELEASE 60 MG PO (09:29)
[2023-08-13] MEDS: ASPIR LOW (ENTERIC COATED) 81 MG PO (09:29)
[2023-08-13] MEDS: TOPROL XL 25 MG PO (09:29)
[2023-08-13] MEDS: HIPREX 1 GRAM PO (09:29)
[2023-08-13] MEDS: LIDOCAINE 4% PATCH 1 PATCH TOPICAL (09:32)
[2023-08-13 10:00] VITALS: BP 178/79
[2023-08-13 10:39] LABS: Blood Urea Nitrogen 31 mg/dl (9-20); Calcium 8.5 mg/dl (8.4-10.2); Carbon Dioxide 28 mmol/L (22-30); Chloride 98 mmol/L (98-107); Estimated Creatinine Clearance 62 ml/min; Glucose 282 mg/dl (70-99); Potassium 4.4 mmol/L (3.5-5.1); Sodium 129 mmol/L (135-145); eGFR > 60.00
[2023-08-13 11:13] VITALS: BP 171/79
[2023-08-13 11:43] LABS: Glucose - Point of Care 222 mg/dl (70-99)
[2023-08-13 12:20] LABS: Glycohemoglobin (HgbA1c) 9.4 % (4.0-5.6)
[2023-08-13 15:00] VITALS: BP 129/83
--- NOTE | 2023-08-13 15:55 | CM ---
Patient seen bedside with daughter.
IA completed.
patient lives with daughter, son in law, grandkids and dog
1 story home.
Patient ambulates with a LLE prosthetic leg, rollator and occasionally WC.
Patient attends outpatient PT.
patient has had [facility]N in the past and was in [facility] in the past.
PT/OT recommending skilled rehab, patient declined despite daughter coaxing.
Daughter will bring in prosthetic leg and patients WC tomorrow and see how he does with therapy.
GANT form completed.
PCP: Dr Mathias
Pharmacy: [facility]
Plan: probably home with VN vs outpatient therapy
[2023-08-13 17:01] LABS: Glucose - Point of Care 239 mg/dl (70-99)
[2023-08-13] MEDS: COUMADIN 2 MG PO (17:46)
[2023-08-13] MEDS: WELLBUTRIN XL (24 hour extended release) 300 MG PO (17:46)
[2023-08-13] MEDS: LIPITOR 40 MG PO (17:46)
[2023-08-13] MEDS: PROSCAR 5 MG PO (17:47)
[2023-08-13] MEDS: TYLENOL PO (19:37)
[2023-08-13 21:35] LABS: Glucose - Point of Care 99 mg/dl (70-99)
[2023-08-13 23:52] VITALS: BP 159/65
[2023-08-14] MEDS: DILAUDID 0.25 MG IV ×2 (05:57→09:13)
[2023-08-14 06:00] VITALS: BMI 20.9
--- NOTE | 2023-08-14 06:29 | W.PN.HOSP.TC ---
Today's Communication/Plan
-
.
Assessment / Plan
Assessment / Plan
82 years old male presented to the emergency room with uncontrolled left chest wall pain after he sustained a fall and had 3 broken ribs, 7, 8, 9 ribs. No shortness of breath on examination he was noted to be have wheezes. He is a chronic smoker
and smokes 1 pack a day. He was also found to have mild hyperkalemia and he reported he was not eating or drinking well because of the pain. He was trying Percocet but could not control his pain.
Physical Exam
General: Comfortable and Conversant
HEENT: Anicteric and Other (Mucous membranes are slightly dry). Hard hearing
Respiratory: Wheezes and Non Labored Respirations
Cardiac: S1/S2 and Regular Rhythm
GI: Soft, Tender (Mild throughout without rebound or guarding) and Other (Abdomen feels full on exam)
Rectal: Deferred by Provider
Musculoskeletal: No Clubbing, No Cyanosis and Other (Left AKA)
Skin: Warm and Dry
Neuro: Awake, Alert, Oriented and Nonfocal/grossly intact
Psych: Calm
#Multiple Left Rib Fractures
-Encourage use incentive spirometer
-Add Tylenol 1000mg TID
-Add Lidocaine Patch
-Continue Dilaudid prn breakthrough pain until we know how much pain medicine/opioid he will need
-Order PT/OT
#Mild Acute COPD Exacerbation
Bilateral wheezes on exam, not severe. Patient denies shortness of breath or cough, will continue with nebulizer Tx
Unfortunately he continues to smoke tobacco, counseled to quit, he verbalized understanding.
-Continue Solu-Medrol
-Continue DuoNeb
# Hyponatremia, mild, seems a chronic. Na at 129. No confusion
# Hyperkalemia, will give Lokelma 1 dose. Possible related to dehydration
#Constipation
-Give dose of magnesium citrate
-Add Senokot-S
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
-Continue aspirin
Will verify with his coil maker if he needs to be on Coumadin and aspirin at the same time.
# Hypercoagulopathy secondary to Coumadin
Hold Coumadin tonight and recheck INR in a.m.
#Chronic HFpEF
Paroxysmal Atrial Fibrillation
-Continue Coumadin - Monitor INR Daily
-Continue metoprolol
#Dyslipidemia
-Continue Atorvastatin
#Diabetes Mellitus, Type II
-Continue Lantus and NovoLog
-Monitor sugars and continue coverage insulin
#BPH
-Continue Finasteride
#Recurrent UTIs
-Continue Hiprex
#GERD
-Continue Protonix
#Depression
Mood is a pleasant-
-Continue Bupropion and Duloxetine
Hx Bladder Cancer s/p TURBT
DVT proph:Coumadin. Monitor INR
Code Status: DNR. Confirmed with patient
Total time spent to see patient, examine the patient on the floor, review data and lab results, discuss treatment plan with patient, nursing staff around 55 minutes
Anticipated Discharge: Within 24 hours
Subjective/Interval History
-
Date of Service: August 13, 2023
Less pain in chest
denies sob or cough
Objective Data
-
Labs:
Laboratory Results
08/14/23
06:00
WBC Pending
Hgb Pending
Hct Pending
Plt Count Pending
PT Pending
INR Pending
Sodium Pending
Potassium Pending
Chloride Pending
Carbon Dioxide Pending
BUN Pending
Creatinine Pending
Glucose Pending
Calcium Pending
Vital Signs:
Vital Signs
Temp Pulse Resp BP Pulse Ox
97.6 F 85 20 159/65 96
08/13/23 23:52 08/13/23 23:52 08/13/23 23:52 08/13/23 23:52 08/13/23 23:52
I&O
08/12/23 08/13/23 08/14/23
06:59 06:59 06:59
Intake Total 960 / 960 1060 / 1060
Output Total 720 / 720 805 / 805
Balance 240 / 240 255 / 255
[2023-08-14 07:00] VITALS: BP 169/74
[2023-08-14] MEDS: DUONEB 3 ML INH ×2 (07:22→11:54)
[2023-08-14 07:25] LABS: Glucose - Point of Care 117 mg/dl (70-99)
[2023-08-14 07:54] LABS: Hematocrit 34.2 % (39.0-52.0); Hemoglobin 11.1 g/dL (13.0-18.0); Mean Corp Hgb Conc. 32.5 g/dL (33.0-37.0); Mean Corpuscular Hgb 28.1 pg (27.0-31.0); Mean Corpuscular Volume 86.6 fL (80.0-94.0); Mean Platelet Volume 11.9 fL (7.4-10.4); Platelet Count 161 10^3/uL (130-400); Red Blood Cell Count 3.95 10^6/uL (4.70-6.10); Red Cell Dist. Width 17.1 % (11.5-14.5)
[2023-08-14 08:03] LABS: INR 2.93; PT 30.5 Sec (11.4-14.6)
[2023-08-14 08:39] LABS: Blood Urea Nitrogen 36 mg/dl (9-20); Calcium 9.1 mg/dl (8.4-10.2); Carbon Dioxide 27 mmol/L (22-30); Chloride 101 mmol/L (98-107); Estimated Creatinine Clearance 62 ml/min; Glucose 95 mg/dl (70-99); Potassium 4.1 mmol/L (3.5-5.1); Sodium 133 mmol/L (135-145); eGFR > 60.00
[2023-08-14] MEDS: NOVOLOG FLEXPEN 5 UNITS SC ×2 (08:58→12:47)
[2023-08-14] MEDS: NOVOLOG FLEXPEN-HIGH RESISTANCE 1 UNITS SC ×2 (08:58→12:47)
[2023-08-14] MEDS: LANTUS 0.149999999999999994 UNITS SC (09:00)
[2023-08-14] MEDS: LASIX 40 MG PO (09:01)
[2023-08-14] MEDS: TYLENOL 1000 MG PO (09:01)
[2023-08-14] MEDS: LIDOCAINE 4% PATCH 1 PATCH TOPICAL (09:01)
[2023-08-14] MEDS: TOPROL XL 25 MG PO (09:02)
[2023-08-14] MEDS: ASPIR LOW (ENTERIC COATED) 81 MG PO (09:02)
[2023-08-14] MEDS: CYMBALTA DELAYED RELEASE 60 MG PO (09:02)
[2023-08-14] MEDS: PROTONIX 40 MG PO (09:02)
[2023-08-14] MEDS: SENOKOT-S 2 TABLET PO (09:02)
[2023-08-14] MEDS: HIPREX 1 GRAM PO (09:02)
[2023-08-14] MEDS: SOLU-MEDROL PF 40 MG IV (09:03)
--- NOTE | 2023-08-14 10:54 | W.DCSUMMARY ---
Discharge Summary
Discharge Data
Date of Admission: 08/12/23
Date of Discharge: 08/14/23
-
Pending Results: No
Hospital Course
82 years old male who had a fall at home and sustained minimally displaced left-sided rib fractures, seventh, eighth and ninth ribs. Patient did not have pneumothorax or pleural effusion. He presented to the emergency room on August 09. Scan of
the chest and abdomen showed acute fractures with right upper lobe 1.4 cm nodular opacity suspicious for malignancy, emphysema, coronary and aortic atherosclerosis, diverticulosis, cholelithiasis, bilateral renal cortical scarring with mild to
moderate left hydronephrosis. He was advised to be admitted. Patient refused and went home with oral Percocet and to follow-up with pulmonary doctor. He felt his pain was not controlled at home and came back to the hospital. Patient was
admitted for pain control. He was given extra strength Tylenol prelmr-nft-frrgo and as needed Dilaudid. Patient was noted to have bilateral expiratory wheezes. Patient had history emphysema with continued tobacco use. He was given steroid
treatment with improvement. He did not have hypoxia. He had mild hyponatremia with sodium 133 upon discharge, creatinine 0.9. Patient was evaluated by physical therapy and recommended placement at residential facility. Patient declined.
Patient insisted upon going home with home care services. Patient was advised to stay in the hospital to better control his pain but he declined. His family was involved and was made aware of patient's refusal to stay in the hospital and go to
residential facility. Patient was advised regarding pulmonary nodule to go and follow-up with pulmonary doctor. He was counseled aggressively to avoid to smoking. He remained hemodynamically stable and was discharged in a stable condition.
Physical Exam
General: Comfortable and Conversant
HEENT: Anicteric and Other (Mucous membranes are slightly dry). Hard hearing
Respiratory: Wheezes and Non Labored Respirations
Cardiac: S1/S2 and Regular Rhythm
GI: Soft, Tender (Mild throughout without rebound or guarding) and Other (Abdomen feels full on exam)
Rectal: Deferred by Provider
Musculoskeletal: No Clubbing, No Cyanosis and Other (Left AKA)
Skin: Warm and Dry
Neuro: Awake, Alert, Oriented and Nonfocal/grossly intact
Psych: Calm
Total discharge time spent to see patient, examine the patient on the floor, review data and lab results, discuss discharge plan with patient, daughter, nursing staff around 65 minutes
Discharge Plan
-
Patient Disposition: Home with Home Care
Discharge Diagnosis/Procedures: Acute fractures of the left seventh, eighth and ninth ribs. No pneumothorax
Incidental finding of 1.4 cm semisolid nodular opacity and right upper lung lobe, suspicious for malignancy. Recommend strongly pulmonary follow-up.
Emphysema
Coronary and aortic atherosclerosis
You are given extra strength Tylenol and Dilaudid in the hospital. You are advised to stay longer in the hospital and to go to residential facility but you declined. You will need to follow-up with pulmonary doctor regarding pulmonary nodule.
Avoid smoking.
Diet: As tolerated
Activity: With assistance
Referrals:
Inna Garcia DO [Active] - (Make appointment with pulmonary doctor regarding pulmonary nodule)
Mirna Hylton DO [Family Provider] -
Prescriptions:
New
prednisone 20 mg tablet
20 mg PO DAILY Qty: 3 0RF
Continued
atorvastatin 40 MG tablet
40 mg PO QPM
docusate sodium 100 MG capsule
100 mg PO DAILY
furosemide 40 MG tablet
40 mg PO DAILY
finasteride 5 MG tablet
5 mg PO QPM
bupropion HCl 300 MG tablet extended release 24 hr
300 mg PO QPM
albuterol sulfate 1 PUFF HFA aerosol inhaler
2 puff inhalation R Q6HPRN PRN (Reason: sob)
insulin lispro [Humalog KwikPen Insulin] 100 UNIT/ML insulin pen
5 units SC MEALS
Patient Comments:
aspirin 81 MG tablet,delayed release (DR/EC)
81 mg PO DAILY
acetaminophen 325 MG tablet
650 mg PO Q4HPRN PRN (Reason: mild pain)
metoprolol succinate 25 MG tablet extended release 24 hr
25 mg PO DAILY
melatonin 5 MG tablet
5 mg PO HSPRN PRN (Reason: sleep)
insulin glargine [Lantus Solostar U-100 Insulin] 300 UNITS/3 ML insulin pen
8 units SC HS
Patient Comments:
Pt took 4 units last evening
pantoprazole 40 MG tablet,delayed release (DR/EC)
40 mg PO BID
warfarin [Jantoven] 3 MG tablet
3 mg PO QPM
methenamine hippurate 1 gram Tablet
1 g PO DAILY
oxycodone-acetaminophen [Percocet] 5-325 mg tablet
1 tab PO Q8H
duloxetine [Cymbalta] 60 mg Capsule,Delayed Release(Dr/Ec)
60 mg PO DAILY
Discharge Orders:
Discharge Patient (As Directed); Ordered 08/14/23
Ordered By: Amelia Dillard
Discharge Date and Time
Print Language: GEORGIAN
[2023-08-14 11:36] LABS: Glucose - Point of Care 133 mg/dl (70-99)
[2023-08-14 15:03] VITALS: BP 189/80
--- NOTE | 2023-08-14 15:09 | CM ---
Patient for d/c home today.
Denies home care needs.
Son is here to transport.
Plan: Home no needs.
--- NOTE | 2023-08-14 15:19 | PTCARENOTE ---
Patient's was hypertensive upon discharge. Pt did not want to wait for treatment, as he was discharged. RN explained the risks of leaving hospital with such a high blood pressure, and that she needs to let his MD know so they can treat it before he
leaves. Pt replied to RN, 'I don't care if I . I am never coming back to [facility]! I am leaving whether you wheel me down or not!'. Pt proceeded to wheel himself down hallway. RN sent MD a note through TT about the situation and caught
up with patient down the [facility] to help wheel him to d/c area. MD is ordering a script for hypertension medications that he can chart picker. See MAR/flowsheets for further care details.
== END 2023-08-14 16:48 | disposition home or self-care (01) ==
LOC: 4 WEST ACU 16:40
PROVIDERS: Physician Assistant; Physician Assistant Medical; ADMITTING PHYSICIAN Internal Medicine; EMERGENCY PHYSICIAN Emergency Medicine; FAMILY PHYSICIAN Family Medicine
DX: R07.89 Other chest pain (principal); R06.02 Shortness of breath; S22.42XD Multiple fractures of ribs, left side, subsequent encounter for fracture with routine healing; W19.XXXD Unspecified fall, subsequent encounter; E87.1 Hypo-osmolality and hyponatremia; E87.5 Hyperkalemia; E11.51 Type 2 diabetes mellitus with diabetic peripheral angiopathy without gangrene; I25.10 Atherosclerotic heart disease of native coronary artery without angina pectoris; K21.9 Gastro-esophageal reflux disease without esophagitis; F32.A Depression, unspecified; I50.32 Chronic diastolic (congestive) heart failure; K59.00 Constipation, unspecified; I48.0 Paroxysmal atrial fibrillation; I11.0 Hypertensive heart disease with heart failure; J44.1 Chronic obstructive pulmonary disease with (acute) exacerbation; E78.00 Pure hypercholesterolemia, unspecified; F17.200 Nicotine dependence, unspecified, uncomplicated; Z95.1 Presence of aortocoronary bypass graft; Z90.49 Acquired absence of other specified parts of digestive tract; Z85.51 Personal history of malignant neoplasm of bladder; Z86.711 Personal history of pulmonary embolism; Z66 Do not resuscitate; Z89.612 Acquired absence of left leg above knee; N40.0 Benign prostatic hyperplasia without lower urinary tract symptoms; Z87.440 Personal history of urinary (tract) infections; Z86.718 Personal history of other venous thrombosis and embolism
CPT/HCPCS: 71046; 80048; 80053; 82962; 83036; 85025; 85027; 85610; 94640; 96374; 97163; 97166; 97530; 99285; G0378

== ENCOUNTER 2023-09-16 14:44 | Outpatient (RCR) | payer MEDICARE, SELFPAY | END 2023-09-16 23:59 | disposition home or self-care (01) | LOC: RPT 14:44 | PROVIDERS: ATTENDING PHYSICIAN Physical Medicine & Rehabilitation; PRIMARYCARE PHYSICIAN Family Medicine | DX: Z47.81 Encounter for orthopedic aftercare following surgical amputation (principal); Z73.6 Limitation of activities due to disability; R26.2 Difficulty in walking, not elsewhere classified; M62.81 Muscle weakness (generalized); Z89.612 Acquired absence of left leg above knee | CPT/HCPCS: 97763 ==

== ENCOUNTER → 2023-09-17 10:53 | Outpatient (REF) | payer MEDICARE, SELFPAY ==
[2023-09-17 11:49] LABS: % Basophils 0.5 % (0-2); % Eosinophils 2.2 % (0-6); % Immature Granulocytes 0.3 % (0-0.5); % Lymphocytes 13.4 % (20.5-51.1); % Monocytes 11.4 % (1.7-9.3); % Neutrophils 72.2 % (42.2-75.2); Absolute Eosinophils 0.1 10^3/uL (0-0.7); Absolute Lymphocytes 0.9 10^3/uL (1.2-3.4); Absolute Monocytes 0.7 10^3/uL (0.1-0.6); Absolute Neutrophils 4.6 10^3/uL (1.4-6.5); Hematocrit 37.8 % (39.0-52.0); Hemoglobin 11.5 g/dL (13.0-18.0); Mean Corp Hgb Conc. 30.4 g/dL (33.0-37.0); Mean Corpuscular Hgb 28.2 pg (27.0-31.0); Mean Corpuscular Volume 92.6 fL (80.0-94.0); Nucleated Red Blood Cells % 0 % (-); Platelet Count 152 10^3/uL (130-400); Red Blood Cell Count 4.08 10^6/uL (4.70-6.10); Red Cell Dist. Width 16.6 % (11.5-14.5); White Blood Cell Count 6.4 10^3/uL (4.8-10.8)
[2023-09-17 11:52] LABS: Urine Albumin 2+ (Neg - Trace); Urine Bilirubin Negative (Negative); Urine Character Clear (Clear); Urine Color Yellow; Urine Glucose 1+ (Negative); Urine Ketone Negative (Negative); Urine Leukocyte Trace (Negative); Urine Nitrite Negative (Negative); Urine Occult Blood Negative (Negative); Urine Urobilinogen Negative (Neg - 1+)
[2023-09-17 12:05] LABS: Urine Bacteria Few (Negative); Urine Red Blood Cell 0-2 /HPF (0-2); Urine Squamous Cell 0-2 /LPF (Few); Urine White Cell 0-2 /HPF (0-5)
[2023-09-17 12:37] LABS: ALT (SGPT) 10 U/L (0-50); AST (SGOT) 17 U/L (17-59); Albumin 3.5 g/dl (3.5-5.0); Alkaline Phosphatase 94 U/L (38-126); Blood Urea Nitrogen 29 mg/dl (9-20); Calcium 9.2 mg/dl (8.4-10.2); Carbon Dioxide 26 mmol/L (22-30); Chloride 104 mmol/L (98-107); Glucose 158 mg/dl (70-99); Potassium 4.8 mmol/L (3.5-5.1); Sodium 137 mmol/L (135-145); Total Bilirubin 0.5 mg/dl (0.2-1.3); eGFR > 60.00
[2023-09-17 14:43] LABS: Glycohemoglobin (HgbA1c) 9.3 % (4.0-5.6)
== END ==
LOC: REG 10:53
PROVIDERS: ATTENDING PHYSICIAN Nurse Practitioner Family
DX: Z09 Encounter for follow-up examination after completed treatment for conditions other than malignant neoplasm (principal); S22.42XD Multiple fractures of ribs, left side, subsequent encounter for fracture with routine healing; W19.XXXD Unspecified fall, subsequent encounter; E11.9 Type 2 diabetes mellitus without complications; E11.43 Type 2 diabetes mellitus with diabetic autonomic (poly)neuropathy; C67.0 Malignant neoplasm of trigone of bladder; I48.0 Paroxysmal atrial fibrillation; G54.6 Phantom limb syndrome with pain
CPT/HCPCS: 36415; 80053; 81003; 81015; 83036; 85025

== ENCOUNTER 2023-10-14 14:58 | Outpatient (RCR) | payer MEDICARE, SELFPAY | END 2023-10-14 23:59 | disposition home or self-care (01) | LOC: RPT 14:58 | PROVIDERS: ATTENDING PHYSICIAN Physical Medicine & Rehabilitation; PRIMARYCARE PHYSICIAN Family Medicine | DX: Z47.81 Encounter for orthopedic aftercare following surgical amputation (principal); Z73.6 Limitation of activities due to disability; R26.2 Difficulty in walking, not elsewhere classified; M62.81 Muscle weakness (generalized); Z89.612 Acquired absence of left leg above knee | CPT/HCPCS: 97763 ==

== ENCOUNTER 2023-11-01 12:17 | Emergency (ER) | payer MEDICARE, SELFPAY ==
[2023-11-01 12:23] VITALS: BP 146/78
[2023-11-01 12:44] VITALS: BP 144/72
[2023-11-01 12:59] LABS: % Basophils 0.3 % (0-2); % Immature Granulocytes 0.3 % (0-0.5); % Lymphocytes 13.5 % (20.5-51.1); % Neutrophils 72.9 % (42.2-75.2); Absolute Eosinophils 0.2 10^3/uL (0-0.7); Absolute Lymphocytes 0.9 10^3/uL (1.2-3.4); Absolute Monocytes 0.6 10^3/uL (0.1-0.6); Absolute Neutrophils 4.6 10^3/uL (1.4-6.5); Hematocrit 35.7 % (39.0-52.0); Hemoglobin 11.8 g/dL (13.0-18.0); Mean Corp Hgb Conc. 33.1 g/dL (33.0-37.0); Mean Corpuscular Hgb 29.1 pg (27.0-31.0); Mean Corpuscular Volume 87.9 fL (80.0-94.0); Nucleated Red Blood Cells % 0 % (-); Platelet Count 137 10^3/uL (130-400); Red Blood Cell Count 4.06 10^6/uL (4.70-6.10); Red Cell Dist. Width 15.9 % (11.5-14.5); White Blood Cell Count 6.3 10^3/uL (4.8-10.8)
[2023-11-01 13:02] VITALS: BP 148/81
--- NOTE | 2023-11-01 13:05 | ED.GENMED ---
History of Present Illness
General
Chief Complaint: Skin Problem
Time Seen by Provider: 11/01/23 12:39
History of Present Illness
History of Present Illness:
82-year-old male with history of diabetes presenting to the emergency department with redness to the right lower extremity. Patient reports symptoms for the past several days. Reports some burning and warmth. Denies fever. Denies significant
pain. Notes neuropathy at baseline. Denies any increased numbness. Denies any weakness. Denies any chest pain, difficulty breathing, or additional acute medical complaints.
Past History
Past History
ED Past Medical History: Arrthythmia (Atrial fib), CAD, Cancer (bladder CA), COPD, HTN, Hypercholesterolemia, IDDM and Other (Chronic kidney issues, Cellulitis, GI bleeding, PE,)
ED Past Surgical History: Appendectomy, Cardiac (CABG), Orthopedic (LAK,) and Urological
Social History
Tobacco: Smoker
Alcohol: None
Drug: None
Personal:
Living: alone
Employment: Retired
Family History
Family History: Other (Noncontributory)
Phy Exam
Physical Exam
Physical Exam:
General: Well-appearing, no clinical signs of dehydration, nontoxic and in no acute distress
HEENT: protecting airway
Neck: appears supple
CV: Normal heart rate
Resp: No accessory muscle use, no increased work of breathing
Abd: Soft and non-distended
Extremities: AKA of the left lower extremity. Area of mild skin breakdown and erythema at the anterior right ankle. No significant swelling. Distal sensation and pulses intact. No pain on palpation
Neuro: alert, no focal neurologic deficit
: deferred
Rectal: deferred
Psych: Normal affect
Skin: Intact
Course
Orders/Labs/Results
Orders:
Orders
11/01/23 12:50
CMP [Comprehensive Metabolic Panel] Urgent
Complete Blood Count/With Diff Urgent
PT/INR [Prothrombin Time] Urgent
PTT Urgent
Abnormal Lab Results
11/01/23
12:50
RBC 4.06 L 10^6/uL
(4.70-6.10)
Hgb 11.8 L g/dL
(13.0-18.0)
Hct 35.7 L %
(39.0-52.0)
RDW 15.9 H %
(11.5-14.5)
MPV 11.0 H fL
(7.4-10.4)
Absolute Lymphs (auto) 0.9 L 10^3/uL
(1.2-3.4)
Lymphocytes % 13.5 L %
(20.5-51.1)
Monocytes % 10.0 H %
(1.7-9.3)
PT 17.6 H Sec
(11.4-14.6)
Sodium 134 L mmol/L
(135-145)
BUN 25 H mg/dl
(9-20)
Glucose 191 H mg/dl
(70-99)
Total Protein 6.2 L g/dl
(6.3-8.2)
11/01/23 12:50
11/01/23 12:50
Vital Signs
Initial and Last Documented VS:
Initial Vital Signs
Temp Pulse Resp BP Pulse Ox
98.2 F 65 20 146/78 97
11/01/23 12:23 11/01/23 12:23 11/01/23 12:23 11/01/23 12:23 11/01/23 12:23
Last Documented Vital Signs
Temp Pulse Resp BP Pulse Ox
98.2 F 65 20 142/79 98
11/01/23 12:23 11/01/23 12:23 11/01/23 12:23 11/01/23 14:00 11/01/23 14:30
MDM/Problems Addressed
MDM/Problems Addressed:
82-year-old male with history of diabetes presenting for redness to right lower extremity. Vital signs are within normal limits.
On exam, patient is well-appearing, nontoxic. Patient does have area of slight erythema to the right ankle region. No significant swelling or deformity to the leg. No neurovascular compromise. Suspected mild cellulitis. Will screen with
laboratory analysis. No concern for DVT at this time, again without swelling or tenderness on palpation.
14:50 - Labs are relatively unremarkable. Area demarcated with a marker. Feel patient is stable for trial of outpatient oral antibiotics with close outpatient PCP follow-up for reassessment within 3 days. Daughter at bedside and patient in
agreement with plan. Strict return precautions were communicated and patient and family verbalized understanding
*Critical Care Note
Total Time (30-74mins, 75-104mins- exclusive of procedures): Not Applicable
ED Attending Note
-
Portions of this chart may have been created with voice recognition software.� Occasional wrong word or��sound alike� substitutions may have occurred due to the inherent limitations of voice recognition software.
Discharge Plan
Departure
Prescriptions:
No Action
atorvastatin 40 MG tablet
40 mg PO QPM
docusate sodium 100 MG capsule
100 mg PO DAILY
furosemide 40 MG tablet
40 mg PO DAILY
finasteride 5 MG tablet
5 mg PO QPM
bupropion HCl 300 MG tablet extended release 24 hr
300 mg PO QPM
albuterol sulfate 1 PUFF HFA aerosol inhaler
2 puff inhalation R Q6HPRN PRN (Reason: sob)
insulin lispro [Humalog KwikPen Insulin] 100 UNIT/ML insulin pen
5 units SC MEALS
Patient Comments:
aspirin 81 MG tablet,delayed release (DR/EC)
81 mg PO DAILY
acetaminophen 325 MG tablet
650 mg PO Q4HPRN PRN (Reason: mild pain)
metoprolol succinate 25 MG tablet extended release 24 hr
25 mg PO DAILY
melatonin 5 MG tablet
5 mg PO HSPRN PRN (Reason: sleep)
insulin glargine [Lantus Solostar U-100 Insulin] 300 UNITS/3 ML insulin pen
8 units SC HS
Patient Comments:
Pt took 4 units last evening
pantoprazole 40 MG tablet,delayed release (DR/EC)
40 mg PO BID
warfarin [Jantoven] 3 MG tablet
3 mg PO QPM
methenamine hippurate 1 gram Tablet
1 g PO DAILY
oxycodone-acetaminophen [Percocet] 5-325 mg tablet
1 tab PO Q8H
duloxetine [Cymbalta] 60 mg Capsule,Delayed Release(Dr/Ec)
60 mg PO DAILY
prednisone 20 mg tablet
20 mg PO DAILY Qty: 3 0RF
nifedipine 30 mg tablet extended release
30 mg PO DAILY Qty: 30 0RF
Referrals:
Mirna Hylton DO [Family Provider] -
Interventions
Interventions:
*Risk Screen - Suicide Last Done: 11/01/23 12:23
*General Assessment Last Done: 11/01/23 12:23
*Neglect/Abuse Screening Last Done: 11/01/23 12:23
ED-Skin Assessment Last Done: 11/01/23 12:48
Discharge Date and Time
Print Language: FRENCH
[2023-11-01 13:12] LABS: ALT (SGPT) 13 U/L (0-50); APTT 29.8 Sec (23.4-35.0); AST (SGOT) 20 U/L (17-59); Albumin 3.8 g/dl (3.5-5.0); Alkaline Phosphatase 85 U/L (38-126); Blood Urea Nitrogen 25 mg/dl (9-20); Calcium 8.9 mg/dl (8.4-10.2); Carbon Dioxide 28 mmol/L (22-30); Chloride 101 mmol/L (98-107); Glucose 191 mg/dl (70-99); INR 1.44; PT 17.6 Sec (11.4-14.6); Potassium 4.8 mmol/L (3.5-5.1); Sodium 134 mmol/L (135-145); Total Bilirubin 0.5 mg/dl (0.2-1.3); Total Protein 6.2 g/dl (6.3-8.2); eGFR > 60.00
[2023-11-01 14:00] VITALS: BP 142/79
== END 2023-11-01 15:03 | disposition home or self-care (01) ==
LOC: EMR 12:17
PROVIDERS: EMERGENCY PHYSICIAN Student in an Organized Health Care Education/Training Program; FAMILY PHYSICIAN Family Medicine
DX: L03.115 Cellulitis of right lower limb (principal); I12.9 Hypertensive chronic kidney disease with stage 1 through stage 4 chronic kidney disease, or unspecified chronic kidney disease; E11.22 Type 2 diabetes mellitus with diabetic chronic kidney disease; G62.9 Polyneuropathy, unspecified; N18.9 Chronic kidney disease, unspecified; I48.91 Unspecified atrial fibrillation; I25.10 Atherosclerotic heart disease of native coronary artery without angina pectoris; J44.9 Chronic obstructive pulmonary disease, unspecified; E78.00 Pure hypercholesterolemia, unspecified; F17.200 Nicotine dependence, unspecified, uncomplicated; Z85.51 Personal history of malignant neoplasm of bladder; Z90.49 Acquired absence of other specified parts of digestive tract; Z95.1 Presence of aortocoronary bypass graft
CPT/HCPCS: 99283; 80053; 85025; 85610; 85730

== ENCOUNTER 2023-11-25 14:06 | Outpatient (RCR) | payer MEDICARE, SELFPAY | END 2023-11-25 23:59 | disposition home or self-care (01) | LOC: RPT 14:06 | PROVIDERS: ATTENDING PHYSICIAN Physical Medicine & Rehabilitation; PRIMARYCARE PHYSICIAN Family Medicine | DX: Z47.81 Encounter for orthopedic aftercare following surgical amputation (principal); Z73.6 Limitation of activities due to disability; R26.2 Difficulty in walking, not elsewhere classified; M62.81 Muscle weakness (generalized); Z89.612 Acquired absence of left leg above knee | CPT/HCPCS: 97763 ==

== ENCOUNTER 2023-12-09 14:08 | Outpatient (RCR) | payer MEDICARE, SELFPAY | END 2023-12-09 23:59 | disposition home or self-care (01) | LOC: RPT 14:08 | PROVIDERS: ATTENDING PHYSICIAN Physical Medicine & Rehabilitation; PRIMARYCARE PHYSICIAN Family Medicine | DX: Z47.81 Encounter for orthopedic aftercare following surgical amputation (principal); Z73.6 Limitation of activities due to disability; R26.2 Difficulty in walking, not elsewhere classified; M62.81 Muscle weakness (generalized); Z89.612 Acquired absence of left leg above knee | CPT/HCPCS: 97763 ==

== ENCOUNTER → 2023-12-16 13:35 | Outpatient (REF) | payer MEDICARE, SELFPAY ==
[2023-12-16 14:10] LABS: % Basophils 0.4 % (0-2); % Eosinophils 2.4 % (0-6); % Immature Granulocytes 0.4 % (0-0.5); % Lymphocytes 15.7 % (20.5-51.1); % Monocytes 7.5 % (1.7-9.3); % Neutrophils 73.6 % (42.2-75.2); Absolute Eosinophils 0.2 10^3/uL (0-0.7); Absolute Lymphocytes 1.1 10^3/uL (1.2-3.4); Absolute Monocytes 0.5 10^3/uL (0.1-0.6); Absolute Neutrophils 5.1 10^3/uL (1.4-6.5); Hematocrit 35.4 % (39.0-52.0); Hemoglobin 11.3 g/dL (13.0-18.0); Mean Corp Hgb Conc. 31.9 g/dL (33.0-37.0); Mean Corpuscular Hgb 28.8 pg (27.0-31.0); Mean Corpuscular Volume 90.1 fL (80.0-94.0); Mean Platelet Volume 11.9 fL (7.4-10.4); Nucleated Red Blood Cells % 0 % (-); Platelet Count 153 10^3/uL (130-400); Red Blood Cell Count 3.93 10^6/uL (4.70-6.10); Red Cell Dist. Width 16.1 % (11.5-14.5)
[2023-12-16 14:31] LABS: ALT (SGPT) 11 U/L (0-50); AST (SGOT) 19 U/L (17-59); Albumin 3.7 g/dl (3.5-5.0); Alkaline Phosphatase 93 U/L (38-126); Blood Urea Nitrogen 26 mg/dl (9-20); Calcium 8.8 mg/dl (8.4-10.2); Carbon Dioxide 32 mmol/L (22-30); Chloride 101 mmol/L (98-107); Glucose 212 mg/dl (70-99); Sodium 134 mmol/L (135-145); Total Bilirubin 0.4 mg/dl (0.2-1.3); Total Protein 6.1 g/dl (6.3-8.2); eGFR > 60.00
[2023-12-17 08:34] LABS: Glycohemoglobin (HgbA1c) 8.1 % (4.0-5.6)
== END ==
LOC: REG 13:35
PROVIDERS: ATTENDING PHYSICIAN Nurse Practitioner Family
DX: E11.8 Type 2 diabetes mellitus with unspecified complications (principal); E11.43 Type 2 diabetes mellitus with diabetic autonomic (poly)neuropathy
CPT/HCPCS: 36415; 80053; 83036; 85025

== ENCOUNTER → 2023-12-18 12:19 | Outpatient (REF) | payer MEDICARE, SELFPAY | LOC: HWRAD 12:19 | PROVIDERS: ATTENDING PHYSICIAN Specialist; FAMILY PHYSICIAN Family Medicine | DX: N13.30 Unspecified hydronephrosis (principal); N40.1 Benign prostatic hyperplasia with lower urinary tract symptoms | CPT/HCPCS: 74176 ==

== ENCOUNTER 2024-01-20 12:58 | Outpatient (RCR) | payer MEDICARE, SELFPAY | END 2024-01-20 23:59 | disposition home or self-care (01) | LOC: RPT 12:58 | PROVIDERS: ATTENDING PHYSICIAN Physical Medicine & Rehabilitation; PRIMARYCARE PHYSICIAN Family Medicine | DX: Z47.81 Encounter for orthopedic aftercare following surgical amputation (principal); Z73.6 Limitation of activities due to disability; R26.2 Difficulty in walking, not elsewhere classified; M62.81 Muscle weakness (generalized); Z89.612 Acquired absence of left leg above knee | CPT/HCPCS: 97763 ==

== ENCOUNTER 2024-02-04 06:58 | Day surgery (SDC) | payer MEDICARE, SELFPAY ==
[2024-02-04] VITALS (9 sets, daily range): BP systolic 109–176; BP diastolic 51–82; BMI 27.3
[2024-02-04 09:10] LABS: Glucose - Point of Care 168 mg/dl (70-99)
[2024-02-04] MEDS: NORMOSOL-R/PLASMALYTE-A 1000 IV (09:10)
[2024-02-04] MEDS: DUONEB 3 ML INH (09:45)
[2024-02-04 11:05] LABS: Glucose - Point of Care 178 mg/dl (70-99)
== END 2024-02-04 12:48 | disposition home or self-care (01) ==
LOC: SDS 06:58
PROVIDERS: ATTENDING PHYSICIAN Specialist; FAMILY PHYSICIAN Family Medicine
DX: N13.2 Hydronephrosis with renal and ureteral calculous obstruction (principal); R33.9 Retention of urine, unspecified; Z85.51 Personal history of malignant neoplasm of bladder
CPT/HCPCS: 52351; 74420; 76000; 82962; 87086; 94640; C1758; C1894

== ENCOUNTER → 2024-04-04 08:58 | Outpatient (REF) | payer MEDICARE, SELFPAY | LOC: DHVS 08:58 | PROVIDERS: ATTENDING PHYSICIAN Surgery Vascular Surgery; FAMILY PHYSICIAN Family Medicine | DX: I77.9 Disorder of arteries and arterioles, unspecified (principal); I71.40 Abdominal aortic aneurysm, without rupture, unspecified | CPT/HCPCS: 76770; 93922; 93925 ==

== ENCOUNTER 2024-08-22 17:53 | Emergency (ER) | payer MEDICARE, SELFPAY ==
[2024-08-22 18:06] VITALS: BP 180/65
[2024-08-22 19:27] VITALS: BP 172/80
== END 2024-08-22 20:33 ==
LOC: EMR 17:53
DX: S09.90XA Unspecified injury of head, initial encounter (principal); Z53.21 Procedure and treatment not carried out due to patient leaving prior to being seen by health care provider
CPT/HCPCS: 99281; 70450

== ENCOUNTER → 2024-10-14 13:04 | Outpatient (REF) | payer MEDICARE, SELFPAY ==
[2024-10-14 14:06] LABS: % Basophils 0.4 % (0-2); % Eosinophils 1.8 % (0-6); % Immature Granulocytes 0.4 % (0-0.5); % Lymphocytes 12.1 % (20.5-51.1); % Monocytes 8.6 % (1.7-9.3); % Neutrophils 76.7 % (42.2-75.2); Absolute Eosinophils 0.1 10^3/uL (0-0.7); Absolute Lymphocytes 0.7 10^3/uL (1.2-3.4); Absolute Monocytes 0.5 10^3/uL (0.1-0.6); Absolute Neutrophils 4.3 10^3/uL (1.4-6.5); Hematocrit 32.3 % (39.0-52.0); Hemoglobin 10.1 g/dL (13.0-18.0); Mean Corp Hgb Conc. 31.3 g/dL (33.0-37.0); Mean Corpuscular Hgb 27.8 pg (27.0-31.0); Mean Platelet Volume 12.2 fL (7.4-10.4); Nucleated Red Blood Cells % 0 % (-); Platelet Count 162 10^3/uL (130-400); Red Blood Cell Count 3.63 10^6/uL (4.70-6.10); Red Cell Dist. Width 17.2 % (11.5-14.5); White Blood Cell Count 5.6 10^3/uL (4.8-10.8)
[2024-10-14 15:30] LABS: ALT (SGPT) 13 U/L (0-50); AST (SGOT) 18 U/L (17-59); Albumin 3.5 g/dl (3.5-5.0); Alkaline Phosphatase 80 U/L (38-126); Blood Urea Nitrogen 22 mg/dl (9-20); Carbon Dioxide 30 mmol/L (22-30); Chloride 101 mmol/L (98-107); Glucose 187 mg/dl (70-99); HDL Cholesterol 47 mg/dl; LDL Cholesterol, Calculated 50 mg/dl; Potassium 4.8 mmol/L (3.5-5.1); Sodium 136 mmol/L (135-145); Total Bilirubin 0.4 mg/dl (0.2-1.3); Total Cholesterol 118 mg/dl (50-199); Total Protein 6.1 g/dl (6.3-8.2); Triglyceride 107 mg/dl (10-149); Very Low Density Lipoprotein 21 mg/dl (0-30); eGFR > 60.00
[2024-10-14 16:01] LABS: Vitamin B12 325 pg/ml (239-931)
[2024-10-15 10:24] LABS: Glycohemoglobin (HgbA1c) 7.9 % (4.0-5.6)
== END ==
LOC: DHVS 13:04
PROVIDERS: ATTENDING PHYSICIAN Surgery Vascular Surgery; FAMILY PHYSICIAN Family Medicine
DX: I77.9 Disorder of arteries and arterioles, unspecified (principal); E11.43 Type 2 diabetes mellitus with diabetic autonomic (poly)neuropathy; Z79.01 Long term (current) use of anticoagulants; G62.9 Polyneuropathy, unspecified
CPT/HCPCS: 36415; 80053; 80061; 82607; 83036; 84443; 85025

== ENCOUNTER 2024-10-25 09:20 | Day surgery (SDC) | payer MEDICARE, SELFPAY ==
[2024-10-25] VITALS (20 sets, daily range): BP systolic 114–208; BP diastolic 48–92; BMI 28.1
[2024-10-25 10:01] LABS: Hematocrit 34.2 % (39.0-52.0); Hemoglobin 10.6 g/dL (13.0-18.0); Mean Corp Hgb Conc. 31.0 g/dL (33.0-37.0); Mean Corpuscular Volume 89.1 fL (80.0-94.0); Platelet Count 146 10^3/uL (130-400); Red Cell Dist. Width 17.2 % (11.5-14.5)
[2024-10-25] MEDS: NSS 500 IV (10:11)
[2024-10-25 10:13] LABS: Glucose - Point of Care 167 mg/dl (70-99)
[2024-10-25 10:14] LABS: APTT 28.6 Sec (23.4-35.0); INR 1.10; PT 14.5 Sec (11.4-14.6)
[2024-10-25 10:30] LABS: Blood Urea Nitrogen 24 mg/dl (9-20); Calcium 8.7 mg/dl (8.4-10.2); Carbon Dioxide 30 mmol/L (22-30); Chloride 105 mmol/L (98-107); Estimated Creatinine Clearance 51 ml/min; Glucose 164 mg/dl (70-99); Potassium 4.6 mmol/L (3.5-5.1); Sodium 139 mmol/L (135-145); eGFR > 60.00
--- NOTE | 2024-10-25 11:05 | W.SUR.PREOP ---
Pre-Operative Surgical Note
-
I have examined this patient prior to the performance of the scheduled procedure.
The patient's condition is unchanged from the time of the current History and
Physical and the patient is able to undergo the scheduled procedure.
--- NOTE | 2024-10-25 12:36 | W.SUR.POST ---
Surgical Immediate Post Op
Note
Pre Op Diagnosis: PAD
Post Op Diagnosis: PAD
Procedure Performed: RLE arteriogram, HISTOLOGY TECHNICIAN/stent to distal bypass anastomosis
Primary Surgeon: Deepika
Secondary Surgeons: Jenny PGY4
Anesthesia: local sedation
Estimated Blood Loss: <2cc
Fluids: see anesthesia flow sheet
Drains/Shunts: none
Specimens/Cultures: none
Doppler/Duplex/Angio (Y/N): Y
Complications: none
Operative Findings: + doppler signal upon completion
[2024-10-25 12:55] LABS: Glucose - Point of Care 146 mg/dl (70-99)
[2024-10-25] MEDS: NSS 1000 IV (13:59)
[2024-10-25] MEDS: DILAUDID 0.5 MG IV (14:06)
--- NOTE | 2024-10-25 14:12 | OR.RPT ---
Operative Report
Operative Report
Date of Operation: 10/25/2024
Pre Op Diagnosis:
1. Suspected distal anastomotic stenosis of right lower extremity bypass
2. Left below the knee amputation
Post Op Diagnosis:
1. Suspected distal anastomotic stenosis of right lower extremity bypass
2. Left below the knee amputation
Procedure:
1.) Drug-coated balloon angioplasty of distal anastomotic stenosis of right lower extremity bypass (6 mm x 60 mm Lutonix balloon)
2.) Balloon angioplasty and stenting of distal anastomosis of right lower extremity bypass (6 mm x 5 cm Viabahn stent graft; postdilated with 6 mm angioplasty balloon)
3.) Diagnostic aortobiiliac arteriogram
4.) Diagnostic right lower extremity arteriogram
5.) Ultrasound-guided percutaneous access to the left common femoral artery
Surgeon: Zack Poe III, MD
Photography Manager: Michael Palacios MD PGY-6
Anesthesia: Sedation with local
Fluoroscopy:
22 min
172 mGy
36.71 gy.cm2
Complications: None
Estimated Blood Loss: Less than 20 cc
History and Indications for Procedure: Previous right lower extremity bypass. Surveillance duplex with velocity elevations at the distal anastomosis suggesting stenosis. Prior left below the knee amputation. He was brought to the operating room
for interrogation of the bypass.
Procedure in Detail: Angel Macedo was correctly identified and placed supine on the operating table. After adequate induction of anesthesia the bilateral groins were prepped and draped in the usual sterile fashion. A timeout was performed with
the nursing and anesthesia staff confirming the patient's identity as well as the nature and laterality of the procedure.
The left common femoral artery was identified under ultrasound guidance. He had undergone a previous common femoral endarterectomy which was patent on ultrasound. There was dense scar in the left groin. The superior and inferior aspects of the
femoral head were identified with radiographic guidance and marked at the skin level. The proposed puncture site was infiltrated with local anesthesia. Under ultrasound guidance we accessed the left common femoral artery with a micropuncture needle
and upsized to a 5 Fr sheath over a short floppy tip Amplatz wire. The wire and a Shepherds hook flush catheter were advanced into the distal abdominal aorta and a diagnostic aorto-biiliac arteriogram was performed:
AORTO-ILIAC ARTERIOGRAM:
Aorta: AFX stent graft patent with no stenosis identified.
Right common iliac artery: Patent AFX limb. No stenosis identified.
Right external iliac artery: Patent stent. No stenosis identified
Left common iliac artery: Patent AFX limb. No stenosis identified
Left external iliac artery: Heavily calcified. Patent.
Under roadmap guidance using a Glidewire and the Shepherds hook catheter we selected the right common iliac artery and then the external iliac artery. A Quickcross catheter was tracked up and over the aortic bifurcation and placed in the distal
external iliac artery. A diagnostic right lower extremity arteriogram was then performed which demonstrated the following:
RIGHT LOWER EXTREMITY:
Common femoral artery: Previous common femoral endarterectomy. Patent with no stenosis identified
Profunda femoral artery: Patent proximally with no stenosis identified. In the distal main branch there was significant calcified plaque contributing to a high-grade stenosis
Superficial femoral artery: Heavily calcified and occluded throughout.
Popliteal artery: Occluded above the knee and behind the knee
Bypass: Patent. Proximal anastomosis widely patent with no stenosis identified. Good flow through the bypass to the below-knee popliteal artery. Distal anastomosis with irregularity and evidence of stenosis consistent with duplex findings.
Anterior tibial artery: Occluded
Tibioperoneal trunk: Patent
Peroneal artery: Patent. Distal reconstitution of the dorsalis pedis artery and posterior tibial artery at the ankle via peroneal artery collaterals.
Posterior tibial artery: Occluded
ENDOVASCULAR INTERVENTION: Systemic heparin was administered. Selected the bypass with the Quickcross catheter and Glidewire. Exchanged out for a 6 Fr 45 cm sheath over a floppy tip Amplatz wire. Under roadmap guidance navigated the wire and
catheter across the distal anastomosis and into the peroneal artery. Exchanged out for a V18 wire. Under roadmap guidance I brought into position a 6 mm x 60 mm Lutonix drug-coated balloon. This was positioned in the desired location and inflated
to nominal pressure. 3-minute inflation was performed at nominal pressure. The balloon was deflated and removed over the wire. Subsequent arteriogram demonstrated improvement but a linear luminal irregularity persisted. I therefore elected to
treat this with covered stent placement. Under roadmap guidance a 6 mm x 5 cm Viabahn stent graft was positioned in the desired location across the distal anastomosis extending into the below-knee popliteal artery. The stent was deployed in the
desired location. The stent was postdilated with a 6 mm angioplasty balloon.
COMPLETION ARTERIOGRAM: Excellent technical result. Widely patent distal anastomosis and stent with no residual stenosis identified. Brisk outflow through the popliteal artery below the knee and into the tibioperoneal trunk and peroneal artery.
Once again identified was reconstitution of the dorsalis pedis artery and posterior tibial artery via peroneal artery collaterals at the ankle.
Satisfied with this result we concluded the procedure. The sheath tip was pulled back into the left external iliac artery. Protamine was administered. The sheath was secured in place with the plan to pull it in the recovery room.
The patient tolerated the procedure well and was taken to the recovery area in stable condition.
Attestation: I was present and responsible for the entire procedure.
Signed:
Zack Poe III, MD
Vascular Surgery
[facility]
== END 2024-10-25 18:15 | disposition home or self-care (01) ==
LOC: CATH 09:20
PROVIDERS: ATTENDING PHYSICIAN Surgery Vascular Surgery; PRIMARYCARE PHYSICIAN Family Medicine
DX: T82.858A Stenosis of other vascular prosthetic devices, implants and grafts, initial encounter (principal); Y83.2 Surgical operation with anastomosis, bypass or graft as the cause of abnormal reaction of the patient, or of later complication, without mention of misadventure at the time of the procedure; E11.51 Type 2 diabetes mellitus with diabetic peripheral angiopathy without gangrene; I48.91 Unspecified atrial fibrillation; Z86.718 Personal history of other venous thrombosis and embolism; J44.9 Chronic obstructive pulmonary disease, unspecified; I70.201 Unspecified atherosclerosis of native arteries of extremities, right leg; Z89.612 Acquired absence of left leg above knee; Z79.82 Long term (current) use of aspirin; Z79.899 Other long term (current) drug therapy; I71.43 Infrarenal abdominal aortic aneurysm, without rupture; Z79.4 Long term (current) use of insulin; Z79.01 Long term (current) use of anticoagulants
CPT/HCPCS: 37226; 75625; 75710; 80048; 82962; 85027; 85610; 85730; 87070; 93005; C1769; C1874; C2623; Q9967

== ENCOUNTER → 2024-11-23 15:03 | Outpatient (REF) | payer MEDICARE, SELFPAY | LOC: RAD 15:03 | PROVIDERS: ATTENDING PHYSICIAN Surgery Vascular Surgery; FAMILY PHYSICIAN Family Medicine | DX: I77.9 Disorder of arteries and arterioles, unspecified (principal) | CPT/HCPCS: 93922; 93925 ==

== ENCOUNTER 2025-03-05 16:06 | Emergency (ER) | payer MEDICARE, SELFPAY ==
[2025-03-05 16:13] VITALS: BP 158/71
[2025-03-05 16:39] LABS: Hematocrit 34.8 % (39.0-52.0); Hemoglobin 10.8 g/dL (13.0-18.0); Mean Corp Hgb Conc. 31.0 g/dL (33.0-37.0); Mean Corpuscular Volume 88.1 fL (80.0-94.0); Nucleated Red Blood Cells % 0 % (-); Platelet Count 173 10^3/uL (130-400); Red Cell Dist. Width 17.0 % (11.5-14.5)
[2025-03-05 17:23] LABS: ALT (SGPT) 14 U/L (0-50); AST (SGOT) 18 U/L (17-59); Albumin 3.7 g/dl (3.5-5.0); Alkaline Phosphatase 137 U/L (38-126); Blood Urea Nitrogen 26 mg/dl (9-20); Calcium 8.7 mg/dl (8.4-10.2); Carbon Dioxide 29 mmol/L (22-30); Chloride 98 mmol/L (98-107); Glucose 110 mg/dl (70-99); Lipase 39 U/L (23-300); Potassium 4.3 mmol/L (3.5-5.1); Sodium 132 mmol/L (135-145); Total Protein 6.8 g/dl (6.3-8.2); eGFR > 60.00
[2025-03-05 17:59] VITALS: BMI 21.2
[2025-03-05 18:00] VITALS: BP 112/63
[2025-03-05 18:05] VITALS: BP 112/63
[2025-03-05] MEDS: NSS 1000 IV (18:05)
[2025-03-05 19:00] VITALS: BP 96/66
[2025-03-05 20:01] VITALS: BP 138/62
[2025-03-05 20:35] LABS: Urine Character Clear (Clear)
[2025-03-05 20:56] LABS: Urine Red Blood Cell 0-2 /HPF (0-2); Urine Squamous Cell >30 /LPF (Few)
[2025-03-05 21:00] VITALS: BP 150/64
--- NOTE | 2025-03-05 21:25 | ED.GENMED ---
History of Present Illness
General
Chief Complaint: Abdominal Symptoms
Source: patient
Exam Limitations: none
History of Present Illness
History of Present Illness:
Note:
CHIEF COMPLAINT(S)
Abdominal pain and weakness.
HISTORY OF PRESENT ILLNESS
The patient is an 84-year-old male who presented with complaints of abdominal pain and weakness. The abdominal pain has been persistent throughout the day, described as being located across the lower abdomen. The patient has experienced diarrhea
following a normal bowel movement upon arrival and describes the stool as very loose. He mentions that, although the pain is not always present, he 'just doesnt feel right.' The patient denies any blood in his urine and stool, and states there is no
diagnostic pattern or activities associated with the onset of pain.
Today, the patient also reported feeling clammy, cold, and experienced generalized weakness. This weakness has worsened over the past week, now affecting his ability to perform tasks such as picking up a pencil. He denies experiencing any fevers,
chest pain, or shortness of breath. The patient is on several medications, including warfarin and aspirin for blood clots, as well as a history of chronic obstructive pulmonary disease (COPD). He denies having congestive heart failure with swollen
legs.
SOCIAL DETERMINANTS AFFECTING HEALTH
The patient is hard of hearing, as indicated during the conversation when he had difficulty understanding the communications around baseball preferences.
MEDICATIONS
The patient is taking warfarin and aspirin for blood clots, among a list of approximately 12 medications.
PHYSICAL EXAM
General: Alert, no acute distress.
Skin: Warm, clammy.
Head: Normocephalic, atraumatic.
Neck: Supple, trachea midline.
Eyes, Ears, Nose, Mouth and Throat: Oral mucosa moist.
Cardiovascular: Normal peripheral perfusion, No edema.
Respiratory: Respirations are non-labored.
Gastrointestinal: Abdomen nondistended, bowel sounds present.
Back: Normal range of motion, Normal alignment.
Musculoskeletal: Limited by weakness, though normal range of motion otherwise noted. Amputation right great toe. Left AKA
Neurological: Alert and oriented, No focal neurological deficit observed.
Psychiatric: Cooperative, appropriate mood & affect.
PLAN
- Obtain a urine sample for analysis.
- Conduct laboratory tests.
- Administer intravenous fluids as the patient is not fluid restricted.
- Review blood work to determine if a computed tomography (CT) scan is needed and which type is appropriate.
DIFFERENTIAL DIAGNOSIS
The Differential Diagnosis includes, in no particular order and is not limited to:
- Gastroenteritis
- Acute abdominal pathology (such as appendicitis or diverticulitis)
- Gastrointestinal bleed (despite no visible blood in stools)
- Dehydration
- Electrolyte imbalance
- Urinary tract infection
- Peptic ulcer disease
- Ischemic bowel disease
- Abdominal aortic aneurysm
- Medication effects (due to multiple medications including anticoagulants)
Disposition:
SUMMARY OF ENCOUNTER
The patient, an 84-year-old male, presented to the emergency department with abdominal pain and symptoms consistent with a urinary tract infection (UTI). His abdominal pain resolved before he was evaluated in the examination room. Laboratory work
returned essentially normal, except for signs indicating a UTI in an unclean urine sample. Despite the suggestion for further testing and imaging, the patient expressed a strong desire to be discharged, ultimately stating he would leave against
medical advice unless discharged immediately.
DISPOSITION
Discharge Against Medical Advice
ASSESSMENT
The patient may have a urinary tract infection. He refused further imaging and additional testing.
EMERGENCY TREATMENTS ADMINISTERED
A one-time dose of nitrofurantoin was administered for possible UTI.
PLAN
Discharge patient with stable condition and advise on symptoms and possible need to return if symptoms worsen.
PATIENT EDUCATION AND COUNSELING
Patient was advised about the potential severity of refusing further evaluation for abdominal pain and the possible complications of untreated UTIs. Informed him about signs to watch for that would necessitate a return to the emergency department.
FOLLOW-UP INSTRUCTIONS
Advised the patient to follow up with his primary care physician regarding his abdominal pain and possible UTI.
MEDICATION RECONCILIATION
Administered one-time dose of Nitrofurantoin for urinary tract infection.
MEDICAL DECISION MAKING
- Number and Complexity of Problems Addressed: Chronic conditions affecting care include a possible urinary tract infection. Differential diagnosis considered: gastroenteritis, acute abdominal pathology, gastrointestinal bleed, dehydration,
electrolyte imbalance, urinary tract infection, peptic ulcer disease, ischemic bowel disease, abdominal aortic aneurysm, medication effects.
- Data:
- Category 1: Laboratory tests reviewed indicated possible UTI.
- Category 3: Patient firmly refused imaging, stating leave against medical advice.
DIAGNOSIS
1. Urinary Tract Infection (possible), ICD-10: N39.0
Past History
Past History
ED Past Medical History: Arrthythmia (Atrial fib), CAD, Cancer (bladder CA), COPD, HTN, Hypercholesterolemia, IDDM and Other (Chronic kidney issues, Cellulitis, GI bleeding, PE,)
ED Past Surgical History: Appendectomy, Cardiac (CABG), Orthopedic (LAK,) and Urological
Social History
Tobacco: Smoker
Alcohol: None
Drug: None
Personal:
Living: alone
Employment: Retired
Family History
Family History: Other (Noncontributory)
Phy Exam
Physical Exam
Physical Exam:
.
Course
Orders/Labs/Results
Orders:
Orders
03/05/25 16:23
Complete Blood Count/With Diff Urgent
Comprehensive Metabolic Panel Urgent
Lipase Urgent
03/05/25 17:56
0.9% Sodium Chloride 1000 ml [Nss] 1,000 ml IV BOLUS
03/05/25 20:27
Urinalysis Reflex To Culture Urgent
Date Specimen was Collected: 03/05/25
Time Specimen was Collected: 20:08
Urine Microscopic Reflex Cult Urgent
Urine Culture Urgent
JAMES Source: U
Specimen Description:
Date Specimen was Collected: 03/05/25
Time Specimen was Collected: 20:08
03/05/25 21:32
Fosfomycin [Monurol] 3 gm PO ONCE ONE
Abnormal Lab Results
03/05/25 03/05/25
16:23 20:27
RBC 3.95 L 10^6/uL
(4.70-6.10)
Hgb 10.8 L g/dL
(13.0-18.0)
Hct 34.8 L %
(39.0-52.0)
MCHC 31.0 L g/dL
(33.0-37.0)
RDW 17.0 H %
(11.5-14.5)
MPV 11.4 H fL
(7.4-10.4)
Absolute Lymphs (auto) 0.6 L 10^3/uL
(1.2-3.4)
Neutrophils % 78.5 H %
(42.2-75.2)
Lymphocytes % 9.6 L %
(20.5-51.1)
Monocytes % 9.4 H %
(1.7-9.3)
Sodium 132 L mmol/L
(135-145)
BUN 26 H mg/dl
(9-20)
Glucose 110 H mg/dl
(70-99)
Alkaline Phosphatase 137 H U/L
(38-126)
Ur Occult Blood Reflex 1+ A
(Negative)
Leukocyte Esterase Rfl 1+ A
(Negative)
Urine WBC (Reflex) 11-15 A /HPF
(0-5)
Urine Albumin (Reflex) 3+ A
(Neg - Trace)
03/05/25 16:23
03/05/25 16:23
Vital Signs
Initial and Last Documented VS:
Initial Vital Signs
Temp Pulse Resp BP Pulse Ox
97.4 F 55 18 158/71 98
03/05/25 16:13 03/05/25 16:13 03/05/25 16:13 03/05/25 16:13 03/05/25 16:13
Last Documented Vital Signs
Temp Pulse Resp BP Pulse Ox
97.4 F 61 17 150/64 95
03/05/25 16:13 03/05/25 21:45 03/05/25 21:45 03/05/25 21:00 03/05/25 21:59
*Pulse Oximetry
SaO2: 95
Oxygen Mode of Delivery: Room air
Patient hypoxic: no
*Critical Care Note
Total Time (30-74mins, 75-104mins- exclusive of procedures): Not Applicable
ED Attending Note
-
Portions of this chart may have been created with voice recognition software.� Occasional wrong word or��sound alike� substitutions may have occurred due to the inherent limitations of voice recognition software.
Discharge Plan
Departure
Patient Disposition: Home (Routine Discharge)
Date of Disposition: 03/05/25
Time of Disposition: 21:35
Patient with high blood pressure during this ER visit?: Yes
Discharge Problem:
Abdominal pain, Acute UTI
Instructions: Urinary tract infections in adults, Abdominal Pain
Prescriptions:
No Action
atorvastatin 40 MG tablet
40 mg PO QPM
docusate sodium 100 MG capsule
100 mg PO DAILY
furosemide 40 MG tablet
40 mg PO DAILY
finasteride 5 MG tablet
5 mg PO QPM
bupropion HCl 300 MG tablet extended release 24 hr
300 mg PO QPM
albuterol sulfate 1 PUFF HFA aerosol inhaler
2 puff inhalation R Q6HPRN PRN (Reason: sob)
insulin lispro [Humalog KwikPen Insulin] 100 UNIT/ML insulin pen
5 units SC MEALS
Patient Comments:
Rx Instructions:
Took 3 units last night 02/02
aspirin 81 MG tablet,delayed release (DR/EC)
81 mg PO DAILY
acetaminophen 325 MG tablet
650 mg PO Q4HPRN PRN (Reason: mild pain)
metoprolol succinate 25 MG tablet extended release 24 hr
25 mg PO DAILY
melatonin 5 MG tablet
5 mg PO HSPRN PRN (Reason: sleep)
insulin glargine [Lantus Solostar U-100 Insulin] 300 UNITS/3 ML insulin pen
12 units SC HS
Patient Comments:
Pt took 4 units last evening
pantoprazole 40 MG tablet,delayed release (DR/EC)
40 mg PO DAILY
warfarin [Jantoven] 3 MG tablet
3 mg PO QPM
methenamine hippurate 1 gram Tablet
1 g PO DAILY
duloxetine [Cymbalta] 60 mg Capsule,Delayed Release(Dr/Ec)
60 mg PO DAILY
trazodone 50 mg Tablet
75 mg PO HS PRN (Reason: insomnia)
fluticasone furoate-vilanterol [Breo Ellipta] 200-25 mcg/dose Blister With Device
1 inh INHALATION DAILY
Referrals:
NONE,* [Family Provider, Internal Medicine]
Interventions
Interventions:
*Risk Screen - Suicide Last Done: 03/05/25 16:13
*General Assessment Last Done: 03/05/25 18:06
*Neglect/Abuse Screening Last Done: 03/05/25 18:06
*ED- Fall Risk Assessment Last Done: 03/05/25 19:06
*ED COVID-19 Vaccine History Last Done: 03/05/25 18:06
*ED Influenza Vaccine History Last Done: 03/05/25 18:06
*Nursing Disposition Last Done: 03/05/25 21:59
SQ-Xbzyma-Msbzvldxkx Assessment Last Done: 03/05/25 20:36
Discharge Date and Time
Discharge Date/Time: 03/05/25 22:00
Print Language: SWEDISH
[2025-03-05] MEDS: MONUROL 3 GM PO (21:47)
== END 2025-03-05 22:00 | disposition home or self-care (01) ==
LOC: EMR 16:06
PROVIDERS: Emergency Medicine; EMERGENCY PHYSICIAN Student in an Organized Health Care Education/Training Program
DX: N39.0 Urinary tract infection, site not specified (principal); E11.9 Type 2 diabetes mellitus without complications; E78.00 Pure hypercholesterolemia, unspecified; F17.200 Nicotine dependence, unspecified, uncomplicated; I10 Essential (primary) hypertension; I25.10 Atherosclerotic heart disease of native coronary artery without angina pectoris; I48.91 Unspecified atrial fibrillation; J44.9 Chronic obstructive pulmonary disease, unspecified; Z79.4 Long term (current) use of insulin; Z85.51 Personal history of malignant neoplasm of bladder; Z90.49 Acquired absence of other specified parts of digestive tract; Z95.1 Presence of aortocoronary bypass graft
CPT/HCPCS: 96360; 99284; 80053; 81003; 81015; 83690; 85025; 87077; 87086; 87147

== ENCOUNTER 2025-03-11 17:30 | Emergency (ER) | payer MEDICARE, SELFPAY ==
[2025-03-11 17:33] VITALS: BP 139/78
[2025-03-11 18:20] VITALS: BMI 21.3
[2025-03-11] MEDS: DILAUDID 1 MG IM (18:40)
[2025-03-11 19:05] VITALS: BP 124/55
--- NOTE | 2025-03-11 19:50 | ED.GENMED ---
History of Present Illness
General
Chief Complaint: Musculo-Skeletal Complaint
Source: patient and spouse
Exam Limitations: none
Time Seen by Provider: 03/11/25 18:12
Nursing documentation reviewed up to this point in time: agreed with
History of Present Illness
History of Present Illness:
Note:
CHIEF COMPLAINT(S)
Phantom limb pain in the left foot.
HISTORY OF PRESENT ILLNESS
The patient is an 84-year-old male presenting with a significant recurrence of phantom limb pain localized to the left foot, described as intense and distinct from any other pain. The symptoms started approximately 24 hours ago and have been more
severe than past episodes. The patient experiences these episodes every few months, but they have not required hospitalization before. Previous attempts to use gabapentin for management were unsuccessful due to adverse effects such as hallucinations
and disorientation. The patient has been on bupropion and hydrocodone; however, the latter was administered three times since last night (at 3:00 AM, 8:00 AM, and 1:00 PM) with little effect on alleviating the pain. The patients spouse mentioned
that the pain is getting worse, although not more frequent.
PAST MEDICAL AND SURIGICAL HISTORY
The patient experiences phantom limb pain.
SOCIAL DETERMINANTS AFFECTING HEALTH
The spouse mentioned that the patient has attempted several interventions without substantial relief, suggesting ongoing physical and possibly financial burden related to managing the condition.
MEDICATIONS
- Bupropion
- Hydrocodone (recently administered for the pain)
- Lorazepam (for sleep)
PHYSICAL EXAM
General: Alert, no acute distress.
Skin: Warm, dry.
Head: Normocephalic, atraumatic.
Neck: Supple, trachea midline.
Eye, Ears, Nose, Mouth, and Throat: Oral mucosa moist.
Cardiovascular: Normal peripheral perfusion, no edema.
Respiratory: Respirations are non-labored.
Gastrointestinal: Abdomen nondistended.
Back: Normal range of motion, normal alignment.
Musculoskeletal: Normal ROM, normal strength.
Neurological: Alert and oriented to person, place, time, and situation, no focal neurological deficit observed.
Psychiatric: Cooperative, appropriate mood & affect.
PROBLEM LIST
Acute:
- Phantom limb pain of the left foot
PLAN
- Administer intramuscular Dilaudid for pain relief.
- Continuation of current medications as per the patients routine unless otherwise advised.
- Discharge with pain management plan once symptoms are brought under control.
- Schedule follow-up for reassessment of pain management strategy.
DIFFERENTIAL DIAGNOSIS
The Differential Diagnosis includes, in no particular order and is not limited to:
- Phantom limb syndrome
- Neuropathic pain
- Residual limb pain
- Complex regional pain syndrome
- Peripheral neuropathy
- Central post-stroke pain
- Vascular insufficiency
- Psychological factors contributing to pain perception
- Osteoarthritis of the remaining limb
- Medication-induced pain enhancement or side effects
CARE-UPDATE
03/11/25 - 19:54
Patients condition improved after administration of dilaudid. Stable for discharge. Follow up with primary care.
Disposition:
SUMMARY OF ENCOUNTER
The patient is an 84-year-old male presenting with a recurrence of phantom limb pain in the left foot. The condition was notably more severe than previous episodes. The patient had been administered hydrocodone with minimal relief prior to arrival.
During the visit, administration of intramuscular Dilaudid effectively managed the pain, allowing for symptom improvement. There were no signs of deep vein thrombosis (DVT) or infection observed.
DISPOSITION
Discharge
ASSESSMENT
The patients episode of left foot phantom limb pain improved after Dilaudid was administered.
EMERGENCY TREATMENTS ADMINISTERED
Intramuscular Dilaudid for pain relief.
PLAN
- Discharge patient with instructions to continue outpatient management with hydrocodone-acetaminophen and bupropion.
- Follow-up with primary care physician for routine reassessment and management of phantom limb pain.
- Return precautions provided to the patient in case symptoms recur or worsen.
PATIENT EDUCATION AND COUNSELING
The patient was educated on continuing current medications as prescribed and was informed about return precautions in case of symptom escalation.
FOLLOW-UP INSTRUCTIONS
Schedule a follow-up visit with primary care physician to reassess pain management strategy and review complications if any arise.
MEDICATION RECONCILIATION
- Hydrocodone-acetaminophen (continue as prescribed)
- Bupropion (continue as prescribed)
MEDICAL DECISION MAKING
Number and Complexity of Problems Addressed:
Chronic conditions affecting care include phantom limb pain. Differential diagnosis includes phantom limb syndrome, neuropathic pain, residual limb pain, complex regional pain syndrome, peripheral neuropathy, central post-stroke pain, vascular
insufficiency, psychological factors contributing to pain perception, osteoarthritis of the remaining limb, and medication-induced pain enhancement or side effects.
Risk:
Prescription medication was prescribed, including continuation of hydrocodone-acetaminophen for pain management. Care significantly affected by Social Determinants of Health, including the ongoing physical and possibly financial burden related to
managing the condition.
DIAGNOSIS
Phantom limb syndrome, unspecified [ICD-10: G54.6]
Past History
Past History
ED Past Medical History: Arrthythmia (Atrial fib), CAD, Cancer (bladder CA), COPD, HTN, Hypercholesterolemia, IDDM and Other (Chronic kidney issues, Cellulitis, GI bleeding, PE,)
ED Past Surgical History: Appendectomy, Cardiac (CABG), Orthopedic (LAK,) and Urological
Social History
Tobacco: Smoker
Alcohol: None
Drug: None
Personal:
Living: alone
Employment: Retired
Family History
Family History: Other (Noncontributory)
Phy Exam
Physical Exam
Physical Exam:
.
Course
Orders/Labs/Results
Orders:
Orders
03/11/25 18:32
HYDROmorphone [Dilaudid] 1 mg IM NOW STA
Vital Signs
Initial and Last Documented VS:
Initial Vital Signs
Temp Pulse Resp BP Pulse Ox
98.2 F 63 16 139/78 100
03/11/25 17:33 03/11/25 17:33 03/11/25 17:33 03/11/25 17:33 03/11/25 17:33
Last Documented Vital Signs
Temp Pulse Resp BP Pulse Ox
97.7 F 58 16 124/55 94
03/11/25 19:05 03/11/25 19:05 03/11/25 19:05 03/11/25 19:05 03/11/25 19:53
*Pulse Oximetry
SaO2: 94
Oxygen Mode of Delivery: Room air
Patient hypoxic: no
*Critical Care Note
Total Time (30-74mins, 75-104mins- exclusive of procedures): Not Applicable
ED Attending Note
-
Portions of this chart may have been created with voice recognition software.� Occasional wrong word or��sound alike� substitutions may have occurred due to the inherent limitations of voice recognition software.
Discharge Plan
Departure
Patient Disposition: Home (Routine Discharge)
Date of Disposition: 03/11/25
Time of Disposition: 19:50
Patient with high blood pressure during this ER visit?: Yes
Condition: Good
Discharge Problem:
Phantom limb pain
Instructions: Amputation (DC)
Prescriptions:
No Action
atorvastatin 40 MG tablet
40 mg PO QPM
docusate sodium 100 MG capsule
100 mg PO DAILY
furosemide 40 MG tablet
40 mg PO DAILY
finasteride 5 MG tablet
5 mg PO QPM
bupropion HCl 300 MG tablet extended release 24 hr
300 mg PO QPM
albuterol sulfate 1 PUFF HFA aerosol inhaler
2 puff inhalation R Q6HPRN PRN (Reason: sob)
insulin lispro [Humalog KwikPen Insulin] 100 UNIT/ML insulin pen
5 units SC MEALS
Patient Comments:
Rx Instructions:
Took 3 units last night 02/02
aspirin 81 MG tablet,delayed release (DR/EC)
81 mg PO DAILY
acetaminophen 325 MG tablet
650 mg PO Q4HPRN PRN (Reason: mild pain)
metoprolol succinate 25 MG tablet extended release 24 hr
25 mg PO DAILY
melatonin 5 MG tablet
5 mg PO HSPRN PRN (Reason: sleep)
insulin glargine [Lantus Solostar U-100 Insulin] 300 UNITS/3 ML insulin pen
12 units SC HS
Patient Comments:
Pt took 4 units last evening
pantoprazole 40 MG tablet,delayed release (DR/EC)
40 mg PO DAILY
warfarin [Jantoven] 3 MG tablet
3 mg PO QPM
methenamine hippurate 1 gram Tablet
1 g PO DAILY
duloxetine [Cymbalta] 60 mg Capsule,Delayed Release(Dr/Ec)
60 mg PO DAILY
trazodone 50 mg Tablet
75 mg PO HS PRN (Reason: insomnia)
fluticasone furoate-vilanterol [Breo Ellipta] 200-25 mcg/dose Blister With Device
1 inh INHALATION DAILY
Referrals:
NONE,* [Family Provider, Internal Medicine]
Activity Restrictions/Additional Instructions:
Follow up with primary care. Retrun for any concerns.
Interventions
Interventions:
*Risk Screen - Suicide Last Done: 03/11/25 17:33
*General Assessment Last Done: 03/11/25 18:21
*Neglect/Abuse Screening Last Done: 03/11/25 17:33
*ED- Fall Risk Assessment Last Done: 03/11/25 18:20
*ED COVID-19 Vaccine History Last Done: 03/11/25 18:20
*ED Influenza Vaccine History Last Done: 03/11/25 18:20
*Nursing Disposition Last Done: 03/11/25 20:02
ED-Musculoskeletal Assessment Last Done: 03/11/25 18:19
Discharge Date and Time
Discharge Date/Time: 03/11/25 20:03
Print Language: OMANI
== END 2025-03-11 20:03 | disposition home or self-care (01) ==
LOC: EMR 17:30
PROVIDERS: EMERGENCY PHYSICIAN Emergency Medicine
DX: G54.6 Phantom limb syndrome with pain (principal); E10.9 Type 1 diabetes mellitus without complications; I25.810 Atherosclerosis of coronary artery bypass graft(s) without angina pectoris; I48.91 Unspecified atrial fibrillation; I10 Essential (primary) hypertension; E78.00 Pure hypercholesterolemia, unspecified; J44.9 Chronic obstructive pulmonary disease, unspecified; F17.200 Nicotine dependence, unspecified, uncomplicated; Z79.4 Long term (current) use of insulin; Z89.612 Acquired absence of left leg above knee; Z59.869 Financial insecurity, unspecified; Z85.51 Personal history of malignant neoplasm of bladder; Z95.1 Presence of aortocoronary bypass graft; Z86.711 Personal history of pulmonary embolism
CPT/HCPCS: 99284; 96372

== ENCOUNTER 2025-03-16 22:54 | Emergency (ER) | payer MEDICARE, SELFPAY ==
[2025-03-16 22:56] VITALS: BP 146/66
[2025-03-17] MEDS: REFRESH EYE DROPS (PF) 1 DROPS OPHTH (00:44)
[2025-03-17] MEDS: TYLENOL 1000 MG PO (01:11)
--- NOTE | 2025-03-17 02:00 | ED.GENMED ---
History of Present Illness
General
Chief Complaint: Eye Problems
Source: patient and family
Exam Limitations: none
Time Seen by Provider: 03/17/25 00:11
Nursing documentation reviewed up to this point in time: agreed with
History of Present Illness
History of Present Illness:
Note:
CHIEF COMPLAINT(S)
Pain in the left eye following cataract surgery.
HISTORY OF PRESENT ILLNESS
The patient is an 84-year-old male who underwent cataract surgery on the left eye last week. The patient reports that the pain in the left eye has progressively worsened since the procedure. The patient has a follow-up appointment scheduled for
tomorrow. The patient has been using prescribed eye drops; one for the right eye and another for the left eye, which are similar in formulation. There was no mention of other complications during or immediately after the surgery.
PHYSICAL EXAM
- General: Alert, moderate acute distress.
- Skin: Warm, dry.
- Head: Normocephalic, atraumatic.
- Neck: Supple, trachea midline.
- Eye Ears, nose, mouth, and throat: Oral mucosa moist.
- Cardiovascular: Normal peripheral perfusion, no edema.
- Respiratory: Respirations are non-labored.
- Gastrointestinal: Abdomen nondistended.
- Back: Normal range of motion, normal alignment.
- Musculoskeletal: Normal ROM, normal strength. Left AKA
- Neurological: Alert and oriented to person, place, time, and situation. No focal neurological deficit observed.
- Psychiatric: Cooperative, appropriate mood & affect.
PLAN
The recommendation includes contacting the flask fitter, Dr. Ochoa, to discuss the worsening pain and assess any necessary interventions before the scheduled follow-up.
DIFFERENTIAL DIAGNOSIS
The Differential Diagnosis includes, in no particular order and is not limited to:
1. Postoperative inflammation
2. Corneal abrasion
3. Postoperative eye pain
4. Infection
5. Retinal detachment
6. Lens dislocation
7. Dry eye syndrome
8. Allergic reaction to medication
9. Hemorrhage in the eye
10. Glaucoma (acute angle-closure)
CARE-UPDATE
03/17/25 - 01:49
Patient reports substantial improvement in eye symptoms after administration of al-cane eye drops. Will continue monitoring patient�s response and adjust treatment if necessary.
Disposition:
SUMMARY OF ENCOUNTER
The patient, an 84-year-old male, presented with worsening left eye pain following cataract surgery performed last week. He was due for a follow-up with his flask fitter today. In the emergency department, an initial attempt to contact
ophthalmology via [place] [facility] was unsuccessful. The patient received relief from eye pain after administration of proparacaine (al-cane) eye drops.
DISPOSITION
Discharge home.
ASSESSMENT
Acute postoperative eye pain following cataract surgery, resolved with topical anesthetic drops.
EMERGENCY TREATMENTS ADMINISTERED
Proparacaine eye drops were administered in the emergency department, resulting in significant pain relief.
PLAN
Discharge home with instructions to follow-up as scheduled with ophthalmology.
PATIENT EDUCATION AND COUNSELING
The patient was advised regarding the relief of symptoms with proparacaine and the importance of attending the scheduled follow-up appointment with the flask fitter.
FOLLOW-UP INSTRUCTIONS
The patient was reminded to attend the ophthalmology follow-up appointment as scheduled.
MEDICATION RECONCILIATION
Proparacaine eye drops were administered during the emergency department visit.
MEDICAL DECISION MAKING
-Complexity of Data Reviewed: Chronic conditions affecting care include prior history of cataract surgery. Differential diagnosis includes postoperative inflammation, corneal abrasion, increased intraocular pressure, infection, retinal detachment,
lens dislocation, dry eye syndrome, allergic reaction to medication, hemorrhage in the eye, and glaucoma (acute angle-closure).
-Data:
Category 1: Attempts to reach ophthalmology were made. No specific labs or imaging studies performed.
-Risk: Prescription medication was prescribed for relief of acute symptomatology post-surgery. However, no diagnostic testing with high risk was considered necessary given the improvement with topical treatment.
DIAGNOSIS
Acute postoperative eye pain following cataract surgery (H59.813).
Past History
Past History
ED Past Medical History: Arrthythmia (Atrial fib), CAD, Cancer (bladder CA), COPD, HTN, Hypercholesterolemia, IDDM and Other (Chronic kidney issues, Cellulitis, GI bleeding, PE,)
ED Past Surgical History: Appendectomy, Cardiac (CABG), Orthopedic (LAK,) and Urological
Social History
Tobacco: Smoker
Alcohol: None
Drug: None
Personal:
Living: alone
Employment: Retired
Family History
Family History: Other (Noncontributory)
Phy Exam
Physical Exam
Physical Exam:
.
Course
Orders/Labs/Results
Orders:
Orders
03/17/25 00:40
Artificial Tears (Pf) [Refresh Eye Drops (Pf)] 1 drops OPHTH NOW STA
03/17/25 01:09
Acetaminophen [Tylenol] 1,000 mg PO NOW STA
03/17/25 01:26
Tetracaine HCl [Tetracaine 0.5% Ophthalmic Solution] 1 drop .ROUTE .STK-MED ONE
03/17/25 02:11
Tetracaine HCl [Tetracaine 0.5% Ophthalmic Solution] 1 drop .ROUTE .STK-MED ONE
Vital Signs
Initial and Last Documented VS:
Initial Vital Signs
Temp Pulse Resp BP Pulse Ox
98.1 F 64 24 146/66 99
03/16/25 22:56 03/16/25 22:56 03/16/25 22:56 03/16/25 22:56 03/16/25 22:56
Last Documented Vital Signs
Temp Pulse Resp BP Pulse Ox
98.1 F 58 18 139/59 95
03/16/25 22:56 03/17/25 02:29 03/17/25 02:29 03/17/25 02:29 03/17/25 02:29
*Pulse Oximetry
SaO2: 99
Oxygen Mode of Delivery: Room air
Patient hypoxic: no
*Critical Care Note
Total Time (30-74mins, 75-104mins- exclusive of procedures): Not Applicable
ED Attending Note
-
Portions of this chart may have been created with voice recognition software.� Occasional wrong word or��sound alike� substitutions may have occurred due to the inherent limitations of voice recognition software.
Discharge Plan
Departure
Patient Disposition: Home (Routine Discharge)
Date of Disposition: 03/17/25
Time of Disposition: 02:00
Patient with high blood pressure during this ER visit?: Yes
Condition: Good
Discharge Problem:
Post-operative pain
Instructions: How to Use Eye Drops, Managing pain after surgery, BLOOD PRESSURE
Prescriptions:
No Action
atorvastatin 40 MG tablet
40 mg PO QPM
docusate sodium 100 MG capsule
100 mg PO DAILY
furosemide 40 MG tablet
40 mg PO DAILY
finasteride 5 MG tablet
5 mg PO QPM
bupropion HCl 300 MG tablet extended release 24 hr
300 mg PO QPM
albuterol sulfate 1 PUFF HFA aerosol inhaler
2 puff inhalation R Q6HPRN PRN (Reason: sob)
insulin lispro [Humalog KwikPen Insulin] 100 UNIT/ML insulin pen
5 units SC MEALS
Patient Comments:
Rx Instructions:
Took 3 units last night 02/02
aspirin 81 MG tablet,delayed release (DR/EC)
81 mg PO DAILY
acetaminophen 325 MG tablet
650 mg PO Q4HPRN PRN (Reason: mild pain)
metoprolol succinate 25 MG tablet extended release 24 hr
25 mg PO DAILY
melatonin 5 MG tablet
5 mg PO HSPRN PRN (Reason: sleep)
insulin glargine [Lantus Solostar U-100 Insulin] 300 UNITS/3 ML insulin pen
12 units SC HS
Patient Comments:
Pt took 4 units last evening
pantoprazole 40 MG tablet,delayed release (DR/EC)
40 mg PO DAILY
warfarin [Jantoven] 3 MG tablet
3 mg PO QPM
methenamine hippurate 1 gram Tablet
1 g PO DAILY
duloxetine [Cymbalta] 60 mg Capsule,Delayed Release(Dr/Ec)
60 mg PO DAILY
trazodone 50 mg Tablet
75 mg PO HS PRN (Reason: insomnia)
fluticasone furoate-vilanterol [Breo Ellipta] 200-25 mcg/dose Blister With Device
1 inh INHALATION DAILY
moxifloxacin 0.5 % Drops
1 drp OPHTHALMIC (EYE) TID
Referrals:
Yossi Mcguire MD [Active, Ophthalmology] - Keep scheduled appt
Activity Restrictions/Additional Instructions:
Thank You for choosing [facility].
It was a pleasure meeting you and taking part in your care. We hope for your continued healing and wellness.
Please read discharge instructions in their entirety. However, they are for general education and may not describe your exact diagnosis at discharge. Information on your ER visit and medical conditions were discussed with you along with appropriate
follow up information...
If indicated, please take your medications as instructed and indicated on discharge paperwork.
Please schedule a follow up appointment as directed. Call to schedule an appointment
Please return to the emergency department with ANY change in, persisting, or worsening of symptoms. If any of your symptoms do not improve, or persist, or become more severe within 6-12 hours, please return to the emergency department for further
care.
Please return to the emergency department if you develop a headache, neck pain/stiffness, fever greater than 100.4F, chest pain, shortness of breath, persistent nausea, vomiting, slurred speech, difficulty walking, numbness/tingling, weakness, signs
of infection or any other symptoms that are worrisome to you.
If you have any questions or concerns please do not hesitate to call the Hospital at .
Interventions
Interventions:
*Risk Screen - Suicide Last Done: 03/16/25 22:56
*General Assessment Last Done: 03/16/25 23:47
*Neglect/Abuse Screening Last Done: 03/16/25 23:47
*ED- Fall Risk Assessment Last Done: 03/16/25 23:47
*ED COVID-19 Vaccine History Last Done: 03/16/25 23:47
*ED Influenza Vaccine History Last Done: 03/16/25 23:47
*Nursing Disposition Last Done: 03/17/25 02:29
Discharge Date and Time
Discharge Date/Time: 03/17/25 02:30
Print Language: ICELANDIC
[2025-03-17 02:29] VITALS: BP 139/59
== END 2025-03-17 02:30 | disposition home or self-care (01) ==
LOC: EMR 22:54
PROVIDERS: EMERGENCY PHYSICIAN Student in an Organized Health Care Education/Training Program
DX: G89.18 Other acute postprocedural pain (principal); H57.12 Ocular pain, left eye; E10.9 Type 1 diabetes mellitus without complications; I25.810 Atherosclerosis of coronary artery bypass graft(s) without angina pectoris; I48.91 Unspecified atrial fibrillation; I10 Essential (primary) hypertension; E78.00 Pure hypercholesterolemia, unspecified; J44.9 Chronic obstructive pulmonary disease, unspecified; F17.200 Nicotine dependence, unspecified, uncomplicated; Z79.4 Long term (current) use of insulin; Z98.42 Cataract extraction status, left eye; Z85.51 Personal history of malignant neoplasm of bladder; Z95.1 Presence of aortocoronary bypass graft; Z86.711 Personal history of pulmonary embolism; Z89.612 Acquired absence of left leg above knee
CPT/HCPCS: 99283

== ENCOUNTER 2025-04-19 21:27 | Emergency (ER) | payer MEDICARE, SELFPAY ==
[2025-04-19 21:31] VITALS: BP 134/101
--- NOTE | 2025-04-20 00:23 | ED.GENMED ---
History of Present Illness
General
Chief Complaint: Back Pain
Time Seen by Provider: 04/20/25 00:05
History of Present Illness
History of Present Illness:
Patient is a 84-year-old man presenting to the emergency department with right-sided neck pain. Patient states that he woke up this morning with right-sided neck pain. No traumatic events. No numbness tingling. No chest pain. No back pain.
States he has been using Vicodin and lidocaine patch which has been helpful. No fevers chills. Notes stiffness. He does state that since has been in the emergency department the pain has improved and he has much better range of motion.
Past History
Past History
ED Past Medical History: Arrthythmia (Atrial fib), CAD, Cancer (bladder CA), COPD, HTN, Hypercholesterolemia, IDDM and Other (Chronic kidney issues, Cellulitis, GI bleeding, PE,)
ED Past Surgical History: Appendectomy, Cardiac (CABG), Orthopedic (LAK,) and Urological
Social History
Tobacco: Smoker
Alcohol: None
Drug: None
Personal:
Living: alone
Employment: Retired
Family History
Family History: Other (Noncontributory)
Phy Exam
Physical Exam
Physical Exam:
GENERAL: in no acute distress
HEENT: normocephalic, extraocular movements intact, moist oral mucosa
NECK: normal inspection, tenderness over right SCM, no crepitus, no carotid bruit, no cervical spinal tenderness
RESPIRATORY: no respiratory distress, clear to auscultation bilaterally
CARDIOVASCULAR: regular rate and rhythm
ABDOMEN/: soft, non-distended, non-tender to palpation, no rebound or guarding
EXTREMITIES: non-tender, no edema/swelling
NEUROLOGIC: awake and alert, moves all extremities
SKIN: warm
Course
Orders/Labs/Results
Orders:
Orders
04/20/25 00:23
Electrocardiogram (*1) Urgent
Reason for Study: Other
Other Reason for Exam: neck pain
EKG- Treatment ONCE
Vital Signs
Initial and Last Documented VS:
Initial Vital Signs
Temp Pulse Resp BP Pulse Ox
98.2 F 65 16 134/101 98
04/19/25 21:31 04/19/25 21:31 04/19/25 21:31 04/19/25 21:31 04/19/25 21:31
Last Documented Vital Signs
Temp Pulse Resp BP Pulse Ox
98.2 F 65 16 134/101 98
04/19/25 21:31 04/19/25 21:31 04/19/25 21:31 04/19/25 21:31 04/20/25 00:57
MDM/Problems Addressed
Differential Diagnosis Includes:
Patient is a 84-year-old man presenting to the emergency room with right-sided neck pain that has improved while being in the emergency department. On arrival vitals unremarkable exam does show tenderness over the right SCM. Likely musculoskeletal
pain especially given reproducible nature of it. Considered atypical ACS given patient's risk factors. Will obtain screening EKG. Considered obtaining advanced imaging however patient is extremely upset about the wait and would prefer to be
discharged especially since his pain has improved. He is amenable to obtaining an EKG.
EKG per my interpretation with lateral T wave inversions. It is similar to prior. Patient with no chest pain shortness of breath. Neck pain is reproducible with palpation. Will discharge patient at this time.
*Pulse Oximetry
SaO2: 98
Oxygen Mode of Delivery: Room air
Patient hypoxic: no
*Critical Care Note
Total Time (30-74mins, 75-104mins- exclusive of procedures): Not Applicable
ED Attending Note
-
Portions of this chart may have been created with voice recognition software.� Occasional wrong word or��sound alike� substitutions may have occurred due to the inherent limitations of voice recognition software.
Discharge Plan
Departure
Patient Disposition: Home (Routine Discharge)
Date of Disposition: 04/20/25
Time of Disposition: 00:55
Patient with high blood pressure during this ER visit?: No
Discharge Problem:
Neck pain
Instructions: Neck pain - ED (DC)
Prescriptions:
No Action
atorvastatin 40 MG tablet
40 mg PO QPM
docusate sodium 100 MG capsule
100 mg PO DAILY
furosemide 40 MG tablet
40 mg PO DAILY
finasteride 5 MG tablet
5 mg PO QPM
bupropion HCl 300 MG tablet extended release 24 hr
300 mg PO QPM
albuterol sulfate 1 PUFF HFA aerosol inhaler
2 puff inhalation R Q6HPRN PRN (Reason: sob)
insulin lispro [Humalog KwikPen Insulin] 100 UNIT/ML insulin pen
5 units SC MEALS
Patient Comments:
Rx Instructions:
Took 3 units last night 02/02
aspirin 81 MG tablet,delayed release (DR/EC)
81 mg PO DAILY
acetaminophen 325 MG tablet
650 mg PO Q4HPRN PRN (Reason: mild pain)
metoprolol succinate 25 MG tablet extended release 24 hr
25 mg PO DAILY
melatonin 5 MG tablet
5 mg PO HSPRN PRN (Reason: sleep)
insulin glargine [Lantus Solostar U-100 Insulin] 300 UNITS/3 ML insulin pen
12 units SC HS
Patient Comments:
Pt took 4 units last evening
pantoprazole 40 MG tablet,delayed release (DR/EC)
40 mg PO DAILY
warfarin [Jantoven] 3 MG tablet
3 mg PO QPM
methenamine hippurate 1 gram Tablet
1 g PO DAILY
duloxetine [Cymbalta] 60 mg Capsule,Delayed Release(Dr/Ec)
60 mg PO DAILY
trazodone 50 mg Tablet
75 mg PO HS PRN (Reason: insomnia)
fluticasone furoate-vilanterol [Breo Ellipta] 200-25 mcg/dose Blister With Device
1 inh INHALATION DAILY
moxifloxacin 0.5 % Drops
1 drp OPHTHALMIC (EYE) TID
Referrals:
NONE,* [Family Provider, Internal Medicine]
Activity Restrictions/Additional Instructions:
Thank You for choosing [facility].
It was a pleasure meeting you and taking part in your care.
You were seen in the Emergency Department today for neck pain. While you were here we performed an EKG, which was reassuring. Please take Tylenol and continue to use the lidocaine patch as it is musculoskeletal pain. You may benefit from PT.
We would like for you to follow up with your primary care physician for further evaluation. If you experience fever, worsening of your symptoms, or develop any other new or concerning symptoms, please return to the Emergency Department immediately.
Please see the attached sheet for additional information.
Interventions
Interventions:
*Neglect/Abuse Screening Last Done: 04/19/25 21:31
*Risk Screen - Suicide (C-SSRS) Last Done: 04/19/25 21:31
Discharge Date and Time
Print Language: MALTESE
== END 2025-04-20 01:41 | disposition home or self-care (01) ==
LOC: EMR 21:27
PROVIDERS: EMERGENCY PHYSICIAN Student in an Organized Health Care Education/Training Program
DX: M54.2 Cervicalgia (principal); I10 Essential (primary) hypertension; I25.10 Atherosclerotic heart disease of native coronary artery without angina pectoris; F17.200 Nicotine dependence, unspecified, uncomplicated; E11.9 Type 2 diabetes mellitus without complications; Z95.1 Presence of aortocoronary bypass graft; I49.8 Other specified cardiac arrhythmias
CPT/HCPCS: 99283; 93005